=== PATIENT | male | born 1950 | race Caucasian/White ===

== ENCOUNTER 2022-08-23 10:18 | Inpatient (IN) | payer MEDICARE, MEDICAID, SELFPAY ==
[2022-08-23] VITALS (33 sets, daily range): BP systolic 106–148; BP diastolic 63–85; PULSE 54–84; RESP 9–26; TEMP 36.7–36.9; O2SAT 94–100
--- NOTE | 2022-08-23 10:29 | XACV_ITS ---
Exam Room: [facility] Ht: 175 cm Wt: 90 kg BSA: 2.11 m2 Gender: Male : 1950 Exam Priority: Routine Procedure(s): Procedure Description: Diagnostic procedure Procedure Description: PCI procedure Procedure Description: Drug Eluting Coronary Stent Procedure Description: PTCA Procedure Description: Miscellaneous Procedure Description: ACT Procedure Description: Coronary Angiography Diagnostic Cath Status: Emergency Diagnostic Findings * INDICATION: 72 year old male with past medical history of DVT is on Xarelto who has been transferred from [facility] in [place] for STEMI. According to patient he was having chest pain for the last 1 week. He was seen in the ER at outside hospital a week ago when he was treated for anxiety and was sent home. He says chest pain was on and off since then and today got worse. EKG performed at outside hospital showed normal sinus rhythm with ST elevations in inferior leads II, III and aVF with ST depressions in leads I, aVL and V1 and V2. Cardiology team at our hospital (Dr Castaneda) was contacted about an hour after initial EKG and they asked for emergent transfer of patient to our hospital for cardiac catheterization. STEMI alert was activated.Patient was directly taken to the Mannequin Molder on arrival to our hospital. . * Mid Left Anterior Descending: chronic total occlusion, LAWRENCE: 0 flow. Prior to occlusion, it gives off diagonal arteries. * Right Coronary Artery has is a small sized, non dominant vessel. no disease. * Left circumflex artery is a large sized vessel. It * has total thrombotic occlusion in mid segment. * M * id Circumflex: total occlusion, LAWRENCE: 0 flow. After flow was established with PCI, distal left circumflex artery was found to have another significant 70% stenosis. This artery continues and wraps around the apex and provides collaterals to LAD territory.. * Left Main has no disease. * Distal Circumflex: obstructive 70% stenosis, LAWRENCE: 3 flow. * Coronary angiography shows left dominance. PCI Status: Emergency PCI Indication: STEMI - Immediate PCI for STEMI Interventional Findings * PROCEDURE DETAIL: We engaged left main artery with XB 3.0 guide catheter. IV heparin was administered to maintain anticoagulation. 0.014 run-through guidewire was used to cross total thrombotic occlusion of mid left circumflex artery and was put in distal vessel. We predilated the stenosis with 2.5 x 12 mm semicompliant balloon. This established flow. We proceeded with placement of 4.0 x 18 mm resolute Genna drug-eluting stent. At this time we observed that this is a very large sized artery that is wrapping around the apex and providing collaterals to LAD. Distal left circumflex artery also had another 70% stenosis. We proceeded with PCI of this lesion as well. We have predilated with a 2.5 x 12 mm semicompliant balloon. This was followed by placement of 2.75 x 18 mm resolute Genna drug-eluting stent. At this time final angiogram was performed that showed excellent stent expansion, no residual stenosis and LAWRENCE-3 flow. Guidewire and guide catheter were removed. Patient left the Mannequin Molder in a stable condition.. * Mid Circumflex: 100% stenosis treated with a AB TREK 2.50X12 RX BALLOON, and MDT R GENNA 4.0X18 STEPHANIE. 0% residual stenosis, LAWRENCE: 3 flow. * Distal Circumflex: 70% stenosis treated with a AB TREK 2.50X12 RX BALLOON, and MDT R GENNA 2.75X18 STEPHANIE. 0% residual stenosis, LAWRENCE: 3 flow. Conclusions 1. Total thrombotic occlusion of mid left circumflex artery. Severe distal left circumflex artery stenosis 2. . 3. S/p successful revascularization with STEPHANIE x2.. 4. Mid Circumflex was treated with a Balloon, and Drug Eluting Stent. 5. Distal Circumflex was treated with a Balloon, and Drug Eluting Stent. Recommendations * Dual antiplatelet therapy with aspirin and Plavix . For 1 week we will keep on triple therapy with aspirin , plavix and Xarelto and then can continue on plavix and Xarelto. * High intensity statin therapy. * Outpatient cardiology follow up in 7-10 days. Interventional RX Recommendation: PCI w/o planned CABG Diagnostic RX Recommendation: PCI w/o planned CABG Anticoagulation: Heparin Pressures Phase:Rest AO : 90 / 57 ( 74 ) @ 11:44:00 AM 80 / 43 ( 58 ) @ 11:50:00 AM 79 / 42 ( 60 ) @ 11:55:00 AM Clinical Evaluation EBL: 5mL-10mL Procedural Details Admit Source: Emergency department. Pre-Procedure Time Out. Identified patient by full name and date of as verbalized by the patient/guarantor. Does the consent match the physician's order: N/A Emergent. Accurate & Complete Informed Consent: N/A Emergent. Inpatient/Outpatient History & Physical on Chart: N/A Emergent. If H&P is completed, is and addenduem needed: N/A Emergent; If yes, is the addendum complete: N/A Emergent. Visualize and Verify Site with Patient/Guarantor: N/A. Relevant Radiology Images available: N/A. Pre-op teaching completed and patient verbalized understanding. The risks, benefits, and alternatives of sedation and/or procedure were discussed by physician. The patient agrees to continue. Procedure started. [facility] Clinical Fraility Score: 3: Managing Well. Mannequin Molder Indications: ACS <= 24 hours. Chest Pain Symptom Assessment: Typical Angina Symptoms. Correct patient, site and procedure confirmed by cath team. Current diagnosis: STEMI. PERRLA. Strong, equal hand strike operations officer bilaterally. Lungs clear x 5 lobes. IV Site on Arrival: 20 gauge in the right anticubital. IV Fluids: 0.9% NaCl at KVO. 0 mL infused prior to dental laboratory technician apprentice. Pre Procedural Pulses: bilateral radial was 2+. Pre Procedural Pulses: bilateral dorsalis pedis was 2+. Oxygen started at 2liters/min via nasal canula. right groin was prepped with chloroprep then draped in the usual sterile fashion. right radial was prepped with chloroprep then draped in the usual sterile fashion. Baseline sample Acquired. HR: 69 BPM. Physician notified. Physician arrived. Physician scrubbed in. Immediate Pre-Procedure Time Out. Correct Patient: Yes; Correct Procedure: Yes; Correct Site: Yes; Correct Patient Position: Yes; Correct Supplies: Yes; Dried Flammable Prep: Yes; Blood Products Available: N/A;. Lidocaine 1% infiltrated to the right radial. Arterial access obtained. 6 ugandan JR 4 guide catheter was inserted over the wire. Multiple views taken of right coronary artery. Guide catheter out over exchange wire. 6 ugandan XB 3 guide catheter was inserted over the wire. Multiple views taken of left coronary artery. PCI Indication: STEMI. Runthrough guidewire was advanced through the guide catheter to lesion in the mid Circ. Balloon inserted to lesion in the mid Circ. Inflation number : 1 A AB TREK 2.50X12 RX BALLOON was prepped and advanced across the Mid CX , then inflated to 12 KENDALL for 0:14 seconds. Balloon out. Stent inserted to lesion in the mid Circ. Inflation Number : 2 A MDT R GENNA 4.0X18 STEPHANIE -Lot Number# [id number] Exp 08/13/23 was prepped and advanced across the Mid CX. The stent was deployed at 12 KENDALL for 0:22 seconds. Results checked. Stent balloon out over wire. Inflation number: 1 The AB TREK 2.50X12 RX BALLOON was reinflated across the Dist CX, to 12 KENDALL for 0:12 seconds. Balloon inserted to lesion in the distal Circ. Inflation number: 2 The AB TREK 2.50X12 RX BALLOON was reinflated across the Dist CX, to 12 KENDALL for 0:10 seconds. Results checked. Balloon out. Stent inserted to lesion in the distal Circ. Inflation Number : 3 A MDT R GENNA 2.75X18 STEPHANIE -Lot Number# [id number] Exp 01/27/2024 was prepped and advanced across the Dist CX. The stent was deployed at 12 KENDALL for 0:21 seconds. Results checked. Stent balloon out over wire. Wire out. Results checked. Guide catheter out. ACT drawn. Results out of range high, no heparin administered. A TR Band was successful obtaining hemostatsis at the Right Radial artery insertion site. Post Procedure: Pulses reassessed and unchanged. PERRLA. Strong, equal hand strike operations officer bilaterally. No VTE prophylaxis required. Medication's Wasted: Lidocaine 1% = 3 mL. Medication's Wasted: Nitro = 49.8 mg. Medication's Wasted: Other = Fentanyl 50 mcg. Medication's Wasted: Heparin = 4000 u. Total IV fluids: 250 mL. Post-op diagnosis: STEMI,Severe CAD mid and Distal Circumflex s/p successful stenting. Complications: none. Estimated blood loss: 5mL-10mL. Responsiveness - Normal response to verbal stimuli; alert and oriented, PERRLA. Airway - Unaffected, no intervention required; spontaneous ventilation. Circulation: W/N/L, pulses unchanged. Nausea/Vomiting: No. Procedure completed. Patient transferred by bed to 1st floor. Vital chart was stopped. Access Site Site: Right Radial artery Sheath Size: 6 Fr Hemostasis Method: TR Band Hemostasis Success: Successful Procedure Medications Start: 10:37 AM Stop: 10:37 AM Medication: Versed Amount: 1 mg Route: I.V. Start: 10:37 AM Stop: 10:37 AM Medication: Fentanyl Amount: 50 mcg Route: I.V. Start: 10:38 AM Stop: 10:38 AM Medication: Nitrogylcerin Amount: 200 mcg Route: I.A. Start: 10:40 AM Stop: 10:40 AM Medication: Heparin Amount: 5000 units Route: I.V. Start: 10:44 AM Stop: 10:44 AM Medication: Heparin Amount: 2000 units Route: I.V. Start: 10:54 AM Stop: 10:54 AM Medication: 0.9% Saline Amount: 250 ml Route: I.V. bolus Start: 10:47 AM Stop: 10:47 AM Medication: Versed Amount: 1 mg Route: I.V. Start: 11:05 AM Stop: 11:05 AM Medication: Plavix Amount: 600 mg Route: P.O. I, the attending physician, have reviewed and verified all procedure medications. Yes, all medications given per verbal order History/Risk Factors Hypertension: No Dyslipidemia: No Peripheral Arterial Disease (PAD): No Myocardial Infarction (GA): No Obesity: No Renal Disease: No Tobacco Use: Current/Recent(w/in 1 year) Prior Interventions PCI: No CABG: No Valve Surgery: No Report Signatures Finalized by Gurvinder Wick MD on 08/29/2022 02:05 PM
--- NOTE | 2022-08-23 11:36 | PC.NURSE ---
Patient back from environmental laboratory technician at 1120am with TR band with 14mL of air instilled. Patient doing well. Report taken from TATUM Church, Family at bedside with patient.
--- NOTE | 2022-08-23 12:16 | P.HP_ITS ---
Providers/Chief Complaint Admitting Physician: Gurvinder Wick MD Chief Complaint: STEMI History of Present Illness Lj Caban is a 72 year old male with past medical history of DVT is on Xarelto who has been transferred from [facility] in [place] for STEMI. According to patient he was having chest pain for the last 1 week. He was seen in the ER at outside hospital a week ago when he was treated for anxiety and was sent home. He says chest pain was on and off since then and today got worse. EKG performed at outside hospital showed normal sinus rhythm with ST elevations in inferior leads II, III and aVF with ST depressions in leads I, aVL and V1 and V2. Cardiology team at our hospital (Dr Castaneda) was contacted about an hour after initial EKG and they asked for emergent transfer of patient to our hospital for cardiac catheterization. STEMI alert was activated. Patient was directly taken to the Dog Daycare Provider on arrival to our hospital. Coronary angiogram showed totally occluded mid left circumflex artery. It was a dominant vessel. 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 Patient admitted successful revascularization of mid left circumflex artery with a 1 stent. It was noted in distal vessel there was another stenosis that was then supplying collaterals to LAD. Distal Left circumflex artery was stented with DESx 1. Review of Systems Narrative: CONSTITUTIONAL: No fever chills weight loss or gain or night sweats. [] HEENT: Normocephalic, atraumatic.[] RESPIRATORY: No cough, sputum, hemoptysis or wheezing.[] CARDIOVASCULAR: Chest pain GI: no nausea vomiting diarrhea. [] AUTOMOBILE TIRE BUILDER: No numbness, tingling, weakness or loss of function in any part of the body. [] MUSCULOSKELETAL: No knee or joint pain or rashes. [] Medications/Allergies Home Medications Medication Instructions Recorded Confirmed Last Taken Type escitalopram oxalate 10 mg tablet mg 08/23/22 08/22/22 History rivaroxaban 20 mg tablet (Xarelto) mg 08/23/22 08/22/22 History PFSH Acute PFSH: Medical History History of deep vein thrombosis Family History Other CAD (coronary artery disease) Vitals/I&O/Wt Last Vital Signs O2 Del Method Room Air 08/23/22 11:40 08/22/22 08/23/22 08/23/22 22:59 06:59 14:59 Output Total 430 / 430 Balance -430 / -430 Physical Exam Narrative: GENERAL: Patient is alert, awake and oriented x3. [] NECK: No jugular vein distension. [] HEENT: No cyanosis. No icterus. No pallor. [] HEART: Regular S1 and S2. No murmur, rub or gallop. [] LUNGS: Clear to auscultate bilaterally. [] CENTRAL NERVOUS SYSTEM: Grossly nonfocal. [] EXTREMITIES: Lower extremities with no edema Data 08/23/22 14:25 08/23/22 14:25 A&P Assessment and plan (1) STEMI (ST elevation myocardial infarction): (2) History of deep vein thrombosis: Plan Patient has presented to ST elevation [place] at outside hospital. There was delay in transfer however was directly taken to cardiac Dog Daycare Provider upon arrival to our hospital. He underwent successful revascularization of left circumflex artery with STEPHANIE times 2. We will continue aspirin and Plavix. Tomorrow we will resume Xarelto. Echocardiogram ordered Labs ordered. Attestations Medical Necessity Statement*: Care expected to cross 2 midnights. Patient has presented with STEMI and underwent successful revascularization with DESX2 Coding Level of Care Code Acute Code for [facility] Diagnoses STEMI (ST elevation myocardial infarction) I21.3 History of deep vein thrombosis Z86.718
[2022-08-23] MEDS: sodium chloride 0.9% 1,000 ML 100 ML IV (13:17)
[2022-08-23 14:39] LABS: Hematocrit 38.2 % (42.0-52.0); Hemoglobin 12.9 g/dL (11.7-16.6); Mean Corpuscular HGB Conc 33.8 g/dL (30.0-36.0); Mean Corpuscular Hemoglobin 30.1 pg (28.0-34.0); Mean Platelet Volume 9.2 fL (7.4-10.4); Platelet Count 183 10^3/cmm (130-400); Red Blood Count 4.29 10^6/uL (4.1-5.3); Red Cell Distribution Width 12.6 % (12.1-15.1); White Blood Count 7.1 10^3/uL (4.0-10.0)
[2022-08-23 14:55] LABS: Absolute Eosinophils 0.1 10^3/cmm (0.0-0.7); Absolute Segmented Neutrophil 4.3 10/cmm (1.6-7.1); Band Neutrophils Absolute 0.1 10^3/cmm (0.0-1.2); Eosinophils 2 %; Lymphocytes 30 %; Monocytes Absolute 0.4 10^3/cmm (0.1-0.6); Segmented Neutrophils 60 %; Total Cells Counted 100 (0-100)
[2022-08-23] MEDS: acetaminophen 325 mg Tablet 650 MG PO (14:55)
[2022-08-23 14:56] LABS: Absolute Neutrophil 4.4 10^3/cmm (1.4-6.5); Blood Urea Nitrogen 12 mg/dL (8-23); Calcium 8.7 mg/dL (8.5-10.5); Carbon Dioxide 27 mmol/L (22-29); Chloride 102 mmol/L (98-107); Chol HDL Ratio 3.16 mg/dL (1.0-5.00); Cholesterol 174 mg/dL (0-200); Glucose 137 mg/dL (65-115); HDL Cholesterol 55 mg/dL (60-100); LDL Cholesterol Calculated 105 mg/dL (50-129); LDL HDL Ratio 1.91 RATIO (0.00-3.22); Lymphocytes Absolute 2.1 10^3/cmm (1.2-3.4); Osmolality Calculated 286 mOsm/kg (285-295); Platelet Estimate Normal (Normal); Sodium 137 mmol/L (136-145); Triglycerides 68 mg/dL (0-150)
[2022-08-23 15:24] LABS: Estmated Average Glucose 128; Hemoglobin A1C 6.1 % (4.0-6.0)
--- NOTE | 2022-08-23 15:39 | PC.NURSE ---
TR band removed at 1520. No hematoma noted. No bleeding noted. 4x4 and tegaderm applied.
--- NOTE | 2022-08-23 18:19 | USCV_ITS ---
Lj Caban Age: 72 Gender: M : 1950 Exam Date: 08/23/2022 19:02 Ordering Phys: Gurvinder Wick M.D ([email or web address]) Technologist: CHRIS [place]am [place] [facility] [place] Indication: post STEMI, s/p cardiac cath with cardiac stents x 2. BP: 108 / 60 HR: 77 Rhythm: Sinus Technical Quality: Technically difficult study poor windows MEASUREMENTS (Male / Female) Normal Values 2D ECHO LV Diastolic Diameter PLAX 3.3 cm 4.2 - 5.9 / 3.9 - 5.3 cm LV Systolic Diameter PLAX 2.6 cm IVS Diastolic Thickness 1.6 cm 0.6 - 1.0 / 0.6 - 0.9 cm IVS Systolic Thickness 2.3 cm LVPW Diastolic Thickness 1.4 cm 0.6 - 1.0 / 0.6 - 0.9 cm LVPW Systolic Thickness 1.7 cm LVOT Diameter 2.2 cm LV Ejection Fraction 2D Teich 42.1 % LV Ejection Fraction MOD 2C 33.0 % LV Ejection Fraction 2C AL 32.7 % LA Diameter 3.9 cm LA Width 3.9 cm LA Height 5.3 cm RA Width 2.7 cm RA Height 4.3 cm Aorta at Sinotubular Diameter 3.4 cm IVC Diameter 2.2 cm M-MODE Aortic Annulus Diameter 3.7 cm LA Ao Ratio MM 1.0 MV E Point Septal Separation 0.8 cm DOPPLER AV Peak Velocity 90.0 cm/s LVOT Peak Velocity 88.0 cm/s AV Area Cont Eq vti 3.9 cm squared AV Area Cont Eq pk 3.6 cm squared MV Area PHT 4.0 cm squared Mitral E to A Ratio 1.3 MV E' Velocity 48.0 cm/s Mitral E to MV E' Ratio 19.4 Mitral E to LV E' Lateral Ratio 19.0 Mitral E to LV E' Septal Ratio 20.3 TR Peak Velocity 279.0 cm/s TR Peak Gradient 31.1 mmHg TV Peak E Velocity 44.0 cm/s Right Atrial Pressure 5.0 mmHg Pulmonary Artery Systolic Pressu 36.1 mmHg FINDINGS Left Ventricle Left ventricle is normal in size. LV systolic function is mildly reduced with EF of 45 to 50%. Moderate hypokinesis of inferior and inferolateral foster. Right Ventricle Normal in size and function Right Atrium Normal in size Left Atrium Normal in size Mitral Valve Moderate mitral annular calcification. Aortic Valve Aortic valve is thickened. No significant stenosis or regurgitation. Tricuspid Valve Mild tricuspid regurgitation. Insufficient TR jet to calculate RVSP. Pulmonic Valve Not wel visualized Pericardium Normal Aorta Normal in size IVC Grossly normal CONCLUSIONS LV systolic function is mildly reduced with EF of 45 to 50%. Moderate hypokinesis of the inferior and inferolateral wall. Mild tricupsid regurgitation. No comparison studies are available Gurvinder Wick MD (Electronically Signed) Final Date: 28 August 2022 14:05 S
[2022-08-23] MEDS: atorvastatin 40 mg Tablet PO (20:45)
[2022-08-23] MEDS: metoprolol tartrate 25 mg Tablet 12.5 MG PO (20:45)
[2022-08-24 03:53] VITALS: BP 112/62; PULSE 72; RESP 19; TEMP 36.6; O2SAT 96
[2022-08-24 04:32] VITALS: PULSE 58
[2022-08-24 06:02] LABS: Basophils # 0.1 10^3/uL (0.0-0.1); Basophils % 0.8 %; Eosinophils # 0.2 10^3/uL (0.0-0.8); Eosinophils % 2.5 %; Hematocrit 38.2 % (42.0-52.0); Hemoglobin 12.3 g/dL (11.7-16.6); Lymphocytes # 2.1 10^3/uL (0.8-4.8); Lymphocytes % 34.1 %; Mean Corpuscular HGB Conc 32.2 g/dL (30.0-36.0); Mean Corpuscular Hemoglobin 29.9 pg (28.0-34.0); Mean Corpuscular Volume 92.7 fl (80-94); Mean Platelet Volume 9.7 fL (7.4-10.4); Monocytes # 0.8 10^3/uL (0.2-0.9); Monocytes % 13.4 %; Neutrophils # 3.07 10^3/uL (1.8-7.7); Neutrophils % 48.9 %; Nucleated Red Blood Cells % 0 %; Platelet Count 185 10^3/cmm (130-400); Red Blood Count 4.12 10^6/uL (4.1-5.3); Red Cell Distribution Width 12.9 % (12.1-15.1); White Blood Count 6.3 10^3/uL (4.0-10.0)
[2022-08-24 06:27] LABS: Anion Gap 10.2 (5-19); Blood Urea Nitrogen 14 mg/dL (8-23); Calcium 8.5 mg/dL (8.5-10.5); Carbon Dioxide 27 mmol/L (22-29); Chloride 104 mmol/L (98-107); Glucose 118 mg/dL (65-115); Osmolality Calculated 286 mOsm/kg (285-295); Potassium 4.2 mmol/L (3.5-5.1); Sodium 137 mmol/L (136-145)
[2022-08-24] MEDS: aspirin 81 mg EC Tablet PO (08:45)
[2022-08-24] MEDS: clopidogrel 75 mg Tablet PO (08:46)
[2022-08-24] MEDS: rivaroxaban 10 mg Tablet 20 MG PO (08:46)
[2022-08-24] MEDS: metoprolol tartrate 25 mg Tablet 12.5 MG PO (08:54)
--- NOTE | 2022-08-24 08:55 | PM.DCS ---
Discharge Providers Date of Admission: 08/23/22 10:18 Date of Discharge: August 24, 2022 Attending Provider at Admission: Gurvinder Wick MD Attending Provider at Discharge: Gurvinder Wick M.D Primary Care Provider: Sukhjinder Hinojosa Diagnoses at Discharge Discharge Diagnosis (1) STEMI (ST elevation myocardial infarction): Status: Inactive (2) History of deep vein thrombosis: Status: Acute Reason for Visit Reason for Visit: STEMI Brief History: 72 year old male with past medical history of DVT is on Xarelto who has been transferred from [facility] in [place] for STEMI.? According to patient he was having chest pain for the last 1 week.? He was seen in the ER at outside hospital a week ago when he was treated for anxiety and was sent home.? He says chest pain was on and off since then and today got worse.? EKG performed at outside hospital showed normal sinus rhythm with ST elevations in inferior leads II, III and aVF with ST depressions in leads I, aVL and V1 and V2.? Cardiology team at our hospital (Dr Castaneda) was contacted about an hour after initial EKG and they asked for emergent transfer of patient to our hospital for cardiac catheterization.? STEMI alert was activated. Patient was directly taken to the Backpackers Manager on arrival to our hospital.? Hospital Course Hospital Course Coronary angiogram showed totally occluded mid left circumflex artery.? It was a dominant vessel.? 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 Patient admitted successful revascularization of mid left circumflex artery with a 1 stent.? It was noted in distal vessel there was another stenosis that was then supplying collaterals to LAD.? Distal Left circumflex artery was stented with DESx 1. Patient's echo showed mildly reduced LV systolic function with EF of 45 to 50%. He stayed overnight in the hospital and was stable. He was discharged home on aspirin, Plavix and Xarelto. Plan to stop aspirin in 1 week and continue on Xarelto and Plavix Physical Exam Narrative: GENERAL: Patient is alert, awake and oriented x3. [] NECK: No jugular vein distension. [] HEENT: No cyanosis. No icterus. No pallor. [] HEART: Regular S1 and S2. No murmur, rub or gallop. [] LUNGS: Clear to auscultate bilaterally. [] CENTRAL NERVOUS SYSTEM: Grossly nonfocal. [] EXTREMITIES: Lower extremities with no edema Discharge Data Studies Completed and Pending Pending at discharge Category Date Time Status SORTER OPERATOR request for service Stat Exams 08/23/22 10:29 Taken Basic Metabolic Panel AM LABS Lab 08/25/22 04:00 Ordered Complete Blood Count w/Auto AM LABS Lab 08/25/22 04:00 Ordered CV. echo complete* [id number] Routine Ultrasound 08/23/22 18:19 Taken Laboratory Results WBC 6.3 10^3/uL (4.0-10.0) 08/24/22 04:48 RBC 4.12 10^6/uL (4.1-5.3) 08/24/22 04:48 Hgb 12.3 g/dL (11.7-16.6) 08/24/22 04:48 Hct 38.2 % (42.0-52.0) L 08/24/22 04:48 MCV 92.7 fl (80-94) 08/24/22 04:48 MCH 29.9 pg (28.0-34.0) 08/24/22 04:48 MCHC 32.2 g/dL (30.0-36.0) 08/24/22 04:48 RDW 12.9 % (12.1-15.1) 08/24/22 04:48 Plt Count 185 10^3/cmm (130-400) 08/24/22 04:48 MPV 9.7 fL (7.4-10.4) 08/24/22 04:48 Neut % (Auto) 48.9 % 08/24/22 04:48 Lymph % (Auto) 34.1 % 08/24/22 04:48 Blanco % (Auto) 13.4 % 08/24/22 04:48 Eos % (Auto) 2.5 % 08/24/22 04:48 Baso % (Auto) 0.8 % 08/24/22 04:48 Neut # (Auto) 3.07 10^3/uL (1.8-7.7) 08/24/22 04:48 Lymph # (Auto) 2.1 10^3/uL (0.8-4.8) 08/24/22 04:48 Blanco # (Auto) 0.8 10^3/uL (0.2-0.9) 08/24/22 04:48 Eos # (Auto) 0.2 10^3/uL (0.0-0.8) 08/24/22 04:48 Baso # (Auto) 0.1 10^3/uL (0.0-0.1) 08/24/22 04:48 Nucleated RBC % (auto) 0 % 08/24/22 04:48 Total Counted 100 (0-100) 08/23/22 14:25 Atypical Lymphs % 0.0 % (0-5) 08/23/22 14:25 Absolute Neutrophils 4.4 10^3/cmm (1.4-6.5) 08/23/22 14:25 Segmented Neutrophils 60 % 08/23/22 14:25 Abs Segm Neuts (Man) 4.3 10/cmm (1.6-7.1) 08/23/22 14:25 Band Neutrophils 2.0 % 08/23/22 14:25 Abs Band Neuts (Man) 0.1 10^3/cmm (0.0-1.2) 08/23/22 14:25 Absolute Lymphocytes 2.1 10^3/cmm (1.2-3.4) 08/23/22 14:25 Lymphocytes (Manual) 30 % 08/23/22 14:25 Monocytes (Manual) 6.0 % 08/23/22 14:25 Absolute Monocytes 0.4 10^3/cmm (0.1-0.6) 08/23/22 14:25 Eosinophils (Manual) 2 % 08/23/22 14:25 Absolute Eosinophils 0.1 10^3/cmm (0.0-0.7) 08/23/22 14:25 Basophils (Manual) 0.0 % 08/23/22 14:25 Absolute Basophils 0.0 10^3/cmm (0.0-0.2) 08/23/22 14:25 Nucleated RBCs # 0.0 /100WBC 08/24/22 04:48 Platelet Estimate Normal (Normal) 08/23/22 14:25 Sodium 137 mmol/L (136-145) 08/24/22 04:48 Potassium 4.2 mmol/L (3.5-5.1) 08/24/22 04:48 Chloride 104 mmol/L (98-107) 08/24/22 04:48 Carbon Dioxide 27 mmol/L (22-29) 08/24/22 04:48 Anion Gap 10.2 (5-19) 08/24/22 04:48 BUN 14 mg/dL (8-23) 08/24/22 04:48 Creatinine 0.9 mg/dL (0.7-1.2) 08/24/22 04:48 GFR Calculation Not Reportable 08/24/22 04:48 Glucose 118 mg/dL (65-115) H 08/24/22 04:48 Estimat Average Glucose 128 08/23/22 14:25 Hemoglobin A1c 6.1 % (4.0-6.0) H 08/23/22 14:25 Calculated Osmolality 286 mOsm/kg (285-295) 08/24/22 04:48 Calcium 8.5 mg/dL (8.5-10.5) 08/24/22 04:48 Triglycerides 68 mg/dL (0-150) 08/23/22 14:25 Cholesterol 174 mg/dL (0-200) 08/23/22 14:25 LDL Cholesterol, Calc 105 mg/dL (50-129) 08/23/22 14:25 HDL Cholesterol 55 mg/dL (60-100) L 08/23/22 14:25 LDL/HDL Ratio 1.91 RATIO (0.00-3.22) 08/23/22 14:25 Cholesterol/HDL Ratio 3.16 mg/dL (1.0-5.00) 08/23/22 14:25 Vitals Last Vital Signs Temp 98 F 08/24/22 03:53 Pulse 58 L 08/24/22 04:32 Resp 19 H 08/24/22 03:53 BP 112/62 08/24/22 03:53 Pulse Ox 96 08/24/22 03:53 O2 Del Method Room Air 08/23/22 15:40 Discharge Plan Discharge Patient Disposition: Home Condition: Stable Prescriptions: New atorvastatin 40 mg Tablet 40 mg PO BEDTIME Qty: 90 3RF clopidogrel 75 mg Tablet 75 mg PO DAILY Qty: 90 3RF aspirin 81 mg Tablet,Delayed Release (Dr/Ec) 81 mg PO DAILY Qty: 90 3RF metoprolol tartrate 25 mg Tablet 12.5 mg PO BID@0900,2100 Qty: 120 2RF lisinopril 2.5 mg tablet 2.5 mg PO DAILY Qty: 90 3RF Continued Xarelto 20 mg tablet 20 mg PO QAM escitalopram oxalate 10 mg tablet 10 mg PO QAM Discharge Orders: Discharge Order (Routine); Ordered 08/24/22 Ordered By: Gurvinder Wick Referrals: Gurvinder Wick M.D [Physician] - 2 months (During your appointment with Beti Guzman, you will be schduled for an follow-up with Dr. Wick. If ypu have any questions or need to reschedule. Please call ) Beti Guzman, RAMBO [Nurse Practitioner] - 7-10 days (Please follow-up with Beti Guzman on August 31 at 2:15P.M. If you have any questions or need rechedule. Please call ) Discharge Diet: Cardiac Discharge Activity: Increase activity as tolerated Patient Instructions: Metoprolol (By mouth) (Lopressor, Toprol XL), Lisinopril (By mouth), Aspirin (By mouth), Atorvastatin (By mouth) (Lipitor), Clopidogrel (By mouth) (Plavix), Coronary Angioplasty (DC), DASH Eating Plan (DC), Opioid Safety, Post Angiogram Home Care Instructions Discharge Attestations Time Spent in Discharge Care*: greater than 30 min Quality Metrics Clinical Quality Measures [ Acute Myocardial Infaction { Clinical Trial Participant: No; Contraindication to aspirin: None; Aspirin prescribed; Contraindication to statin: None; Statin prescribed; Contraindication to PCI: None; PCI performed;}] Coding Level of Care Code Acute Code for [facility] Diagnoses STEMI (ST elevation myocardial infarction) I21.3 History of deep vein thrombosis Z86.718
--- NOTE | 2022-08-24 09:24 | PC.CHAP ---
Pastoral Care Encounter/Spiritual Assessment Type of Contact [] Declined cupola melter visit [] Patient/Family/Request visit [] Outpatient visit [] Follow-up visit [] Physician referral [] Code/Alert [x] Routine visit [] Staff referral [] Actively dying [] Patient sleeping [] Family support [] [] Out of room [] Palliative care [] [] Receiving care in room [] Pre-surgical visit [] Trauma [] Long length of stay [] ICU visit [] Other: Relational/Emotional Strength [x] Patient feels connected with others/family/visitors/staff [] Distress [] Loneliness/isolation [] Abandonment Spirituality of Patient [x] Person of Rola [x] Attends Restoration of their Rola [x] Believes in Prayer [x] Reads Bible or Yazidism materials [] There are Spiritual issues to be addressed Correctional Officer Lieutenant Interventions [x] Prayer [] Active listening [] Non-anxious presence [] Spiritual/emotional support [] Crisis/trauma care [] Spiritual counseling [] Bereavement support [] Provided bereavement packet [] Provided Bible/devotional materials [] Provided toy/stuffed animal, coloring book to patient or family member [] Provided Communion [] Anointing/[place] [] Salvation [x] Completed spiritual assessment [] Other: Impact on Illness or Injury [] Angry [] Fearful [] Anxious [] Often cries [] Exhaustion [] Unable to work [] Unable to attend yazidi [] Unable to walk/stand [] Unable to read [] Unable to drive [] Unable to eat/drink [] Unable to sleep [] Unable to be with family [] Patient intubated [] Other: Summary Time spent with patient 5 min
[2022-08-24 10:23] VITALS: BP 119/62; PULSE 58; RESP 15; TEMP 36.8; O2SAT 98
[2022-08-24 11:30] VITALS: BP 120/70; PULSE 100; RESP 18; O2SAT 97
--- NOTE | 2022-08-24 12:36 | PC.NURSE ---
Patient discharged at 1220 PM with daughter and son in law. IV removed and intact. Patient ambulated with nurse and family to surgical services entrance.
== END 2022-08-24 12:35 | disposition home or self-care (01) | DRG 247 ==
PROVIDERS: Admitting Provider Internal Medicine Cardiovascular Disease; PCP Family Medicine; Visit Provider Internal Medicine
PROC: 027035Z Dilation of Coronary Artery, One Artery with Two Drug-eluting Intraluminal Devices, Percutaneous Approach (ICD-10-PCS; principal; 2022-08-23 10:00)
PROC: 027035Z Dilation of Coronary Artery, One Artery with Two Drug-eluting Intraluminal Devices, Percutaneous Approach (ICD-10-PCS; 2022-08-23 10:00)
DX: I21.21 ST elevation (STEMI) myocardial infarction involving left circumflex coronary artery (principal); I25.82 Chronic total occlusion of coronary artery; Z86.718 Personal history of other venous thrombosis and embolism; Z79.01 Long term (current) use of anticoagulants; Z82.49 Family history of ischemic heart disease and other diseases of the circulatory system; I25.10 Atherosclerotic heart disease of native coronary artery without angina pectoris
CPT/HCPCS: 36415; 80048; 80061; 83036; 85007; 85025; 85027; 85347; 93306; 93454; 96365; 96367; 96376; 99152; 99153; C1725; C1769; C1874; C1887; C1894; C9600; J0461; J1644; J2250; J3010; J3490; J7030; Q9967

== ENCOUNTER → 2022-08-31 13:08 | Outpatient (BNVA) | payer MEDICARE, MEDICAID, SELFPAY | PROVIDERS: PCP Family Medicine; Visit Provider Nurse Practitioner Family | DX: I25.10 Atherosclerotic heart disease of native coronary artery without angina pectoris (principal) | CPT/HCPCS: 36415; 80048; 99214 ==

== ENCOUNTER → 2022-09-06 10:24 | Outpatient (BNVA) | payer MEDICARE, MEDICAID, SELFPAY | PROVIDERS: PCP Family Medicine; Visit Provider Specialist | DX: M16.11 Unilateral primary osteoarthritis, right hip (principal); M25.551 Pain in right hip; Z87.81 Personal history of (healed) traumatic fracture | CPT/HCPCS: 73502; 73552; 99204 ==

== ENCOUNTER → 2022-09-06 10:34 | Outpatient (BNVA) | payer MEDICARE, MEDICAID, SELFPAY | PROVIDERS: PCP Family Medicine; Visit Provider Specialist | DX: M16.11 Unilateral primary osteoarthritis, right hip (principal) | CPT/HCPCS: 73502; 73552 ==

== ENCOUNTER 2022-10-04 10:37 | Outpatient (CLI) | payer MEDICARE, MEDICAID, SELFPAY ==
--- NOTE | 2022-10-04 11:45 | MR_ITS ---
WS: [id number] EXAMINATION: MR hip RT wo con* [id number] ORDER DATE: 10/04/2022 11:17 AM COMPARISON: None. HISTORY: hip pain CONTRAST: Radiograph September 06, 2022 TECHNIQUE: Coronal STIR of the Pelvis. Coronal proton density, coronal T1, axial T2 fat sat, axial T1 , sagittal T2 fat sat, and sagittal T1 performed of the hip. FINDINGS: Advanced osteoarthritis RIGHT hip with rvsg-oz-epma articulation. Associated subchondral cystic rubio e and sclerosis. Evidence of avascular necrosis involving the superior lateral humeral head. No signi ficant subchondral collapse. Extensive subchondral cystic change with edema. Associated subchondral c ystic changes involving the adjacent acetabulum. Hypertrophic spurring along the femoral head. Small RIGHT labral cyst measuring 10 mm. Moderate to advanced degenerative arthritis LEFT hip with a similar appearance. Subchondral cystic change with lirt-zq-xitm articulation. Edema in the LEFT aceta bulum and femoral head. MR/MR hip RT wo con* [id number] IMPRESSION: 1. Advanced osteoarthritis RIGHT hip with peii-iu-iijm articulation. Extensive subchondral cystic change with edema in the RIGHT femoral head and acetabulum. 2. Small amount of avascular necrosis involving the superolateral femoral head . No significant subchondral collapse. 3. Similar-appearing advanced osteoarthritis LEFT hip with subchondral cystic change and edema in the femoral head and acetabulum. 4. Small RIGHT paralabral labral cyst measuring 10 mm.
== END 2022-10-04 10:38 | disposition home or self-care (01) ==
LOC: RAD 10:42
PROVIDERS: PCP Family Medicine; Visit Provider Specialist
DX: M16.0 Bilateral primary osteoarthritis of hip (principal); M87.9 Osteonecrosis, unspecified; M71.351 Other bursal cyst, right hip
CPT/HCPCS: 73721; 99204

== ENCOUNTER → 2022-10-25 15:00 | Outpatient (BNVA) | payer MEDICARE, MEDICAID, SELFPAY | PROVIDERS: PCP Family Medicine; Visit Provider Specialist | DX: M16.11 Unilateral primary osteoarthritis, right hip (principal); M87.051 Idiopathic aseptic necrosis of right femur | CPT/HCPCS: 99214 ==

== ENCOUNTER → 2022-12-06 13:39 | Outpatient (BNVA) | payer MEDICARE, MEDICAID, SELFPAY | PROVIDERS: PCP Family Medicine; Visit Provider Internal Medicine | DX: I25.10 Atherosclerotic heart disease of native coronary artery without angina pectoris (principal); Z86.718 Personal history of other venous thrombosis and embolism; Z79.01 Long term (current) use of anticoagulants; Z79.82 Long term (current) use of aspirin | CPT/HCPCS: 99214 ==

== ENCOUNTER → 2022-12-13 14:15 | Outpatient (BNVA) | payer MEDICARE, MEDICAID, SELFPAY | PROVIDERS: PCP Family Medicine; Visit Provider Specialist | DX: M87.051 Idiopathic aseptic necrosis of right femur (principal); M16.11 Unilateral primary osteoarthritis, right hip; I25.10 Atherosclerotic heart disease of native coronary artery without angina pectoris | CPT/HCPCS: 99213 ==

== ENCOUNTER → 2023-02-14 10:37 | Outpatient (BNVA) | payer MEDICARE, MEDICAID, SELFPAY | PROVIDERS: PCP Family Medicine; Visit Provider Specialist | DX: M87.051 Idiopathic aseptic necrosis of right femur (principal); M16.11 Unilateral primary osteoarthritis, right hip; Z01.818 Encounter for other preprocedural examination | CPT/HCPCS: 36415; 73502; 80053; 81001; 85025; 99215 ==

== ENCOUNTER 2023-03-01 15:47 | Observation (INO) | payer MEDICARE, MEDICAID, SELFPAY ==
[2023-03-01] VITALS (14 sets, daily range): BP systolic 106–137; BP diastolic 56–83; PULSE 57–70; RESP 12–18; TEMP 36.1–36.4; O2SAT 90–100; BMI 29.5
[2023-03-01] MEDS: gabapentin 300 mg Capsule PO (10:57)
[2023-03-01] MEDS: CELEcoxib 200 mg Capsule 400 MG PO (10:57)
[2023-03-01] MEDS: sodium chloride 0.9% 1,000 ML 30 ML IV (10:58)
[2023-03-01] MEDS: acetaminophen 1,000 MG/100 ML PIGGYBACK 400 MG IV ×2 (10:58→19:12)
--- NOTE | 2023-03-01 12:41 | W.PM.OPSUD ---
Surgery/Procedure H&P Update DATE OF PROCEDURE: March 01, 2023 DATE H&P PERFORMED: 02/21/23 H&P UPDATE INFORMATION: I have reviewed H&P completed within last 30 days, I have examined patient prior to procedure, No changes to prior documentation and H&P is in [facility] EMR on date indicated PLANNED PROCEDURE: Operation Date: 03/01/23 12:15 Proposed Procedures p RIGHT TOTAL HIP ARTHROPLASTY 88462,M16.9(Right) - Kimberli Bishop MD Related Problem List Diagnoses (1) Avascular necrosis of bone of right hip: (2) Primary osteoarthritis of right hip:
--- NOTE | 2023-03-01 12:55 | ANES.PREANE2 ---
Pre-Anesthetic Assessment Height/Weight: Height 1.75 m Weight 90.718 kg Temp Pulse Resp BP Pulse Ox O2 Del Method 97 F L 67 16 137/83 97 Room Air 03/01/23 11:06 03/01/23 11:06 03/01/23 11:06 03/01/23 11:06 03/01/23 11:06 03/01/23 11:06 Operation Date: 03/01/23 12:15 Proposed Procedures p RIGHT TOTAL HIP ARTHROPLASTY 34342,M16.9(Right) - Kimberli Bishop MD Familial anesthetic complications: none Was Beta Ash taken within 24 hours: N/A Was Clonidine taken within 24 hours: N/A Last intake: Intake Last Liquid Date 02/28/23 Last Liquid Time 16:00 Last Solid Date 02/28/23 Last Solid Time 16:00 Social Tobacco and No alcohol Exam alert, oriented x 3, clear to auscultation bilaterally and regular rate & rhythm Airway Mallampati: Class II Dentition: other (poor dentition) CV/HEM Coronary Artery Disease (stent on anticoagulation - holding plavix only since 02/26 per chart, patient not good historian with regard to this last dose), Deep Vein Thrombosis, Hypertension and Myocardial Infarction (6 months ago) Musc/skel avascular necrosis of hip Anesthetic Plan ASA status: 4 Anesthesia: General (d/t anticoagulation status) Risk of > 500 ml blood loss (7ml/kg in children): No Medications/Allergies Home Medications Medication Instructions Recorded Confirmed Last Taken Type escitalopram oxalate 10 mg tablet 10 mg PO QAM 08/23/22 02/28/23 02/28/23 History lisinopril 2.5 mg tablet 2.5 mg PO DAILY #90 tabs 08/24/22 02/28/23 02/28/23 Rx clopidogrel 75 mg tablet 75 mg PO DAILY #90 tabs 02/14/23 02/28/23 02/26/23 Rx rivaroxaban 20 mg tablet (Xarelto) 20 mg PO QAM #90 tabs 02/14/23 02/28/23 02/26/23 Rx multivitamin 1 tab PO DAILY 02/21/23 02/28/23 Unknown History enoxaparin 100 mg/mL subcutaneous 90 mg (0.9 mL) SUBCUT Q12H #3.6 mL 02/25/23 02/28/23 02/28/23 Rx syringe (Lovenox) sulfamethoxazole 800 1 tab PO BID 5 days #10 tabs 02/25/23 02/28/23 02/28/23 Rx mg-trimethoprim 160 mg tablet (Bactrim DS) Allergies Allergy/AdvReac Type Severity Reaction Status Date / Time Penicillins Allergy ALGY-Anaphy Verified 02/28/23 12:33 laxis atorvastatin AdvReac Mild nausea Uncoded 02/21/23 10:38 Current Medications Generic Name Dose Route Start Last Admin Trade Name Freq PRN Reason Stop Dose Admin Sodium Chloride 1,000 mls @ 30 mls/hr 03/01/23 10:15 03/01/23 10:58 Sodium Chloride 0.9% IV 03/02/23 10:14 30 mls/hr .Q24H MAYA Administration PFSH Anesthesia Medical History Coronary artery disease 08/23/2022: STEPHANIE x1 to mid circumflex, STEPHANIE x1 to distal circumflex. History of deep vein thrombosis STEMI (ST elevation myocardial infarction) Family History Other CAD (coronary artery disease) Data Anesthesia Cardiac Studies: Echocardiogram 08/23/22
[2023-03-01] MEDS: clindamycin 900 MG/50 ML PREMIX 100 MG IV ×2 (13:09→21:11)
[2023-03-01] MEDS: tranexamic acid 1,000 MG/100 ML PREMIX 600 MG IV ×2 (13:46→18:54)
--- NOTE | 2023-03-01 15:58 | P.OP_ITS ---
Operative Report Date of procedure: March 01, 2023 Pre-op diagnosis: Severe degenerative osteoarthritis of the right hip secondary to avascular necrosis Post-op diagnosis: Severe degenerative osteoarthritis of the right hip secondary to avascular necrosis Post-op findings: Severe avascular necrosis with femoral head collapse and large osteophytes Procedure done: Right total hip arthroplasty Implants: The Benavides total hip system with a size 56 mm by F alpha code Trident II Trit anium acetabular shell with an MDM liner size 46 mm inner diameter by F alpha code.? A size 11 Accolade II 127? neck angle hip stem with a size 28 mm x +4 mm femoral head and a restorationist MDM X3 insert size 28 mm x 46F Specimens removed/disposition: Bone, disposed of Pathology: None sent Surgeon: Kimberli Bishop MD Mail Superintendent: Candis Guevara NP, who was necessary for positioning, retraction, and manip ulation of the leg. Anesthesia: General (Intubated, ASA 4) Estimated blood loss (mL): 250 IV fluids (mL): 1,550 IV fluids: 1300 mL of crystalloid and 250 mL of albumin Urine output (mL): 300 Complications: None Findings: Severe avascular necrosis with femoral head collapse and significant shortening. Large osteophytes. Following the surgical procedure, the hip was stable at 90 degrees of flexion with 80 degrees of internal rotation and 20 degrees of adduction. Condition: stable Disposition: PACU (Then admit to floor under observation status for postoperative rehabilitation and pain management) Brief History: This 72-year-old gentleman presented to the office with complaints of severe bilateral hip pain. He had to utilize 2 canes to ambulate, and even this was very difficult for him. He had significant impairment in his activities of daily living. After discussion, the patient wished to proceed with total hip arthroplasty. Risks and complications were discussed with him, and consents were signed. The patient agreed with the surgical plan. Procedure: Patient was brought to the operating theater.? He was transferred to the operating room table and subsequently administered a general anesthesia, intubated, ASA 4.? Following administration of adequate anesthesia, the patient was placed in full lateral position and held in position with a pegboard.? The patient's right lower extremity was then prepped and draped in usual fashion utilizing DuraPrep.? It was draped free.? Following prepping and draping, a surgical pause was performed.? At the time of surgical pause, we identified the site and side of surgery.? We also identified the patient and preoperative surgical markings.?The patient's operative leg was compared to the opposite leg.? Confirmation was made of equipment availability.? Additionally, the patient's preoperative IV antibiotic, clindamycin 900 mg, and TXA administration was confirmed as well.? X-rays were also reviewed. Following the surgical pause, an incision was made centering over the patient's greater trochanter continuing proximally and distally as necessary to allow access to the hip joint.? Dissection continued through skin and soft tissues usi ng a scalpel, and hemostasis was obtained using electrocautery. The tensor fascia rikki was identified and incised longitudinally.? Sciatic nerve was identified and protected throughout the surgical procedure.? A Charnley U retractor was placed after the tensor fascia rikki had been incised longitudinally, and the sciatic nerve had been identified.? The hip was internally rotated, and the piriformis muscle was identified and tagged. Piriformis muscle along with the remaining short external rotators were then incised from the posterior aspect of the hip joint.? These were retracted posteriorly.? The capsule was entered in a T-type fashion with the edges being tagged, and subsequently the hip was dislocated.? The labrum was excised with further excision accomplished once the femoral head was removed.? Following hip dislocation, a femoral neck osteotomy was accomplished in the appropriate position.? The head was measured, but it was quite deformed.? We then evaluated the acetabulum. The femur was retracted anteriorly.? Soft tissues were retracted, and the labrum was removed.? Labrum was noted to be quite large and deformed. We then began reaming.? Once the femoral head was removed, there was noted to be significant loss of cartilage over the head with the previously noted deformity and cartilage loss within the acetabulum.? We reamed to a size 55 to allow for a size 56 acetabular shell.? The acetabulum was impacted into position.? The MDM liner was then impacted into position with care being taken to assure it seated appropriately.? It was noted that the acetabulum matched the bony anatomy.? The cup was noted to seat nicely and had good fixation upon impact. Large osteophytes were removed from the anterior aspect of the acetabulum following cup insertion. Attention was directed to the proximal femur.? The proximal femur was lifted out of the wound.? A canal finder was passed after the box chisel.? The reamer was used to lateralize.? We then began broaching. We broached sequentially and had excellent fit and fill with the size 11 broach. ? A trial reduction was attempted with a +0 mm femoral head initially, but it was felt that over time, the soft tissues would stretch out, and this would become less stable. Because of this, we then placed a +4 mm femoral head which initially was difficult to reduce, but following movement of the hip, it was noted to loosen up slightly. Therefore, we elected to again perform trial reduction after the femoral component was placed.? With this construct, with the final trial, the hip was noted to be stable, and leg length was felt to be equal.? The final construct included a +4 mm femoral head with the above-noted stem and acetabulum. With this in place, we had the above stabilities.? This was felt to be excellent stab ility. Therefore, trial components were removed after the hip was dislocated.? The size 7 Accolade II 127? neck angle stem was impacted into position without difficulty and onto this was placed a +4 mm x 28 mm femoral head which had been assembled into the MDM insert size 46F.? With a +4 mm femoral head, we had the above-noted stability.? The stem was noted to seat nicely prior to placement of the femoral head.? The wound was copiously irrigated with 20 mL of Betadine and 500 mL of normal saline mixed together.? Subsequently, we suctioned this out and irrigated the wound copiously with lactated Ringer's.? At this time, with all components in appropriate position, the hip was reduced.? Following reduction of the prosthesis once again, we confirmed the stability of the hip.? Leg lengths were also felt to be satisfactory. Being satisfied with the prosthesis, attention was directed to closure.? Closure was accomplished with 0 Vicryl in the capsular tissues.? Piriformis was reattached with 0 Vicryl as well.? Tensor fascia rikki was closed with 0 Vicryl in an interrupted fashion.? The subcutaneous tissues were closed with combination of 0 Vicryl and 2-0 Monocryl.? Vancomycin powder and a Gelfoam thrombin mixture was placed into the wound as well.? The skin was closed with a running 3-0 Monocryl followed by Dermabond Prineo followed by OpSite.? The patient was placed in an abduction pillow.? He was returned the Recovery Room in a satisfactory condition and will be discharged to the floor for postoperative rehabilitation and pain management.? There were no complications or specimens. Related Problem List Diagnoses (1) Avascular necrosis of bone of right hip: (2) Primary osteoarthritis of right hip: (3) History of deep vein thrombosis:
--- NOTE | 2023-03-01 16:15 | XRR_ITS ---
PROCEDURE INFORMATION: Exam: XR Pelvis Exam date and time: 03/01/2023 5:22 PM Age: 72 years old Clinical indication: Device placement; Prior surgery; Surgery date: Post-operative (0-2 days); Surgery type: Post op RT hip; Additional info: Post right total hip arthroplasty ap low pelvis, images in pacu. TECHNIQUE: Imaging protocol: Radiologic exam of the pelvis. Views: 1 or 2 view. COMPARISON: CR XR hip RT 2-3V wo/w pel* [id number] 02/14/2023 10:46 AM FINDINGS: Bones/joints: Total right hip arthroplasty in good alignment. Soft tissues: Postoperative changes. XR/XR pelvis 1-2V* [id number] IMPRESSION: No unexpected postoperative findings.
[2023-03-01] MEDS: mupirocin oint 22 gm 1 APPLIC NASAL (17:23)
[2023-03-01] MEDS: iron polysaccharide complex 150 mg Capsule PO (17:23)
[2023-03-01] MEDS: calcium carbonate 500 mg Chew Tablet 1000 MG PO (17:23)
[2023-03-01] MEDS: sennosides-docusate Tablet 2 TAB PO (17:23)
[2023-03-01] MEDS: gabapentin 300 mg Capsule 600 MG PO (17:24)
[2023-03-01] MEDS: chlorhexidine gluconate 0.12% Btl 473 mL 30 ML MUCOUS MEM ×2 (17:24→21:11)
[2023-03-01] MEDS: oxyCODONE 5 mg IR Tab/Cap PO (17:26)
[2023-03-01] MEDS: CELEcoxib 200 mg Capsule PO (21:11)
[2023-03-02] VITALS: BP 113/70; PULSE 71; RESP 17; TEMP 36.9; O2SAT 99
[2023-03-02] MEDS: acetaminophen 1,000 MG/100 ML PIGGYBACK 400 MG IV ×2 (02:56→10:31)
[2023-03-02 04:00] VITALS: BP 90/54; PULSE 83; RESP 17; TEMP 36.6; O2SAT 90
[2023-03-02 04:41] LABS: Basophils % 0.4 %; Eosinophils % 0.3 %; Hematocrit 32.8 % (37-53); Lymphocytes # 0.8 10^3/uL (0.8-4.8); Lymphocytes % 10.1 %; Mean Corpuscular HGB Conc 32.3 g/dL (30-55); Mean Corpuscular Hemoglobin 30.1 pg (27-33); Mean Corpuscular Volume 93.2 fl (82-101); Mean Platelet Volume 9.6 fL (7.4-10.4); Monocytes # 0.7 10^3/uL (0.2-0.9); Monocytes % 9.2 %; Neutrophils # 6.16 10^3/uL (1.8-7.7); Neutrophils % 79.6 %; Nucleated Red Blood Cells % 0 %; Platelet Count 162 10^3/cmm (157-399); Red Blood Count 3.52 10^6/uL (3.85-5.65); Red Cell Distribution Width 13.2 % (12.1-15.1); White Blood Count 7.73 10^3/uL (3.29-11.43)
[2023-03-02] MEDS: clindamycin 900 MG/50 ML PREMIX 100 MG IV ×2 (04:59→13:02)
[2023-03-02] MEDS: escitalopram 10 mg Tablet PO (04:59)
[2023-03-02] MEDS: rivaroxaban 10 mg Tablet 20 MG PO (04:59)
[2023-03-02 05:08] LABS: Anion Gap 13.5 (5-19); Blood Urea Nitrogen 15 mg/dL (8-23); Calcium 8.5 mg/dL (8.5-10.5); Carbon Dioxide 24 mmol/L (22-29); Chloride 103 mmol/L (98-107); Glucose 185 mg/dL (65-115); Osmolality Calculated 288 mOsm/kg (285-295); Potassium 4.5 mmol/L (3.5-5.1); Sodium 136 mmol/L (136-145)
[2023-03-02 06:00] VITALS: BMI 32.3
[2023-03-02 07:16] VITALS: BP 101/61; PULSE 77; RESP 17; TEMP 36.6; O2SAT 94
[2023-03-02] MEDS: aspirin 325 mg EC Tablet PO (08:12)
[2023-03-02] MEDS: cholecalciferol (vitamin D3) 1,000 unit Tablet 1000 UNIT PO (08:12)
[2023-03-02] MEDS: sennosides-docusate Tablet 2 TAB PO (08:12)
[2023-03-02] MEDS: calcium carbonate 500 mg Chew Tablet 1000 MG PO (08:12)
[2023-03-02] MEDS: iron polysaccharide complex 150 mg Capsule PO (08:12)
[2023-03-02] MEDS: clopidogrel 75 mg Tablet PO (08:12)
[2023-03-02] MEDS: multivitamin therapeutic Tablet 1 TAB PO (08:12)
[2023-03-02] MEDS: mupirocin oint 22 gm 1 APPLIC NASAL (08:13)
[2023-03-02] MEDS: chlorhexidine gluconate 0.12% Btl 473 mL 30 ML MUCOUS MEM ×2 (08:13→13:02)
[2023-03-02 09:43] VITALS: RESP 18
[2023-03-02] MEDS: oxyCODONE 5 mg IR Tab/Cap PO (09:43)
[2023-03-02] MEDS: CELEcoxib 200 mg Capsule PO (09:44)
--- NOTE | 2023-03-02 10:09 | PC.CHAP ---
Pastoral Care Encounter/Spiritual Assessment Type of Contact [] Declined piece dyeing machine tender visit [] Patient/Family/Request visit [] Outpatient visit [] Follow-up visit [] Physician referral [] Code/Alert [x] Routine visit [] Staff referral [] Actively dying [] Patient sleeping [] Family support [] [] Out of room [] Palliative care [] [] Receiving care in room [] Pre-surgical visit [] Trauma [] Long length of stay [] ICU visit [] Other: Relational/Emotional Strength [x] Patient feels connected with others/family/visitors/staff [] Distress [] Loneliness/isolation [] Abandonment Spirituality of Patient [x] Person of Rola [x] Attends Judaism of their Rola [x] Believes in Prayer [x] Reads Bible or Protestant materials [] There are Spiritual issues to be addressed Senior Mechanical Designer Interventions [x] Prayer [x] Active listening [] Non-anxious presence [x] Spiritual/emotional support [] Crisis/trauma care [] Spiritual counseling [] Bereavement support [] Provided bereavement packet [] Provided Bible/devotional materials [] Provided toy/stuffed animal, coloring book to patient or family member [] Provided Communion [] Anointing/[place] [] Salvation [] Completed spiritual assessment [] Other: Impact on Illness or Injury [] Angry [] Fearful [] Anxious [] Often cries [] Exhaustion [] Unable to work [] Unable to attend roman catholic [] Unable to walk/stand [] Unable to read [] Unable to drive [] Unable to eat/drink [] Unable to sleep [] Unable to be with family [] Patient intubated [] Other: Summary Praise the Lord, what a blessing Lj and His brother Marbin Knows the Lord, believer in [place]. Shared his testimony Time spent with patient 20 min
[2023-03-02 11:42] VITALS: BP 103/62; PULSE 71; RESP 18; TEMP 37; O2SAT 92
--- NOTE | 2023-03-02 13:10 | P.DS_ITS ---
Discharge Providers Date of Admission: 03/01/23 15:47 Date of Discharge: March 02, 2023 Attending Provider at Admission: Kimberli Bishop MD Attending Provider at Discharge: Kimberli Bishop MD Primary Care Provider: Sukhjinder Hinojosa Diagnoses at Discharge Discharge Diagnosis (1) S/P total right hip arthroplasty: Status: Acute Permanent problem details: Date of procedure: March 01, 2023 Diagnosis: Severe degenerative osteoarthritis of the right hip secondary to avascular necrosis Procedure done: Right total hip arthroplasty Implants: The [employer] total hip system with a size 56 mm by F alpha code Trident II Tritanium acetabular shell with an MDM liner size 46 mm inner diameter by F alpha code. A size 11 Accolade II 127? neck angle hip stem with a size 28 mm x +4 mm femoral head and a holiness MDM X3 insert size 28 mm x 46F (2) Avascular necrosis of bone of right hip: Status: Acute (3) Primary osteoarthritis of right hip: Status: Acute (4) History of deep vein thrombosis: Status: Acute Reason for Visit Reason for Visit: 20388 M16.9 Brief History: This 72-year-old gentleman presented to the office with complaints of severe bilateral hip pain. He had to utilize 2 canes to ambulate, and even this was very difficult for him. He had significant impairment in his activities of daily living. After discussion, the patient wished to proceed with total hip arthroplasty. Risks and complications were discussed with him, and consents were signed. The patient agreed with the surgical plan. Hospital Course Hospital Course This 72-year-old gentleman was admitted under observation status following right total hip arthroplasty. Surgical procedure was difficult secondary to the patient's severe deformity. On the first postoperative day, the patient was doing well. He was felt safe for discharge to home. He understood posterior hip precautions. There is no evidence of DVT. Dressing was dry and intact, and the patient was discharged to home with home health to follow-up with me in the office as scheduled. Physical Exam Const: COMMON NORMALS: no acute distress, average body habitus, patient oriented x3, no limitations, healthy appearing, alert and well nourished GENERAL APPEARANCE: cooperative; not anxious and not combative ORIENTATION/CONSCIOUSNESS: Yes awake, Yes oriented to person, Yes oriented to place and Yes oriented to time HENMT: COMMON NORMALS: normocephalic and atraumatic HEAD & SCALP: normocephalic and atraumatic Eye: GENERAL EYE: appearance normal, both eyes and all related structures EYELID: eyelids normal Chest: COMMONS NORMALS: normal inspection of the chest Resp: COMMON NORMALS: normal respiratory effort EFFORT & INSPECTION: Yes able to speak in complete sentences and Yes symmetric chest movement Extremity: RIGHT LOWER EXTREMITY: Yes hip joint Right hip: Yes inspection (Minimal to no swelling), Yes palpation (Minimal pain, no ecchymosis) and Yes neurovascular exam (Intact with no evidence of DVT) Neuro: COMMON NORMALS: patient oriented x3 SENSORIUM/ORIENTATION: Yes alert, Yes oriented to person, Yes oriented to place and Yes oriented to time SPEECH: speech normal GAIT: Yes Normal gait present Psych: ATTITUDE: Yes calm and Yes engaged ACTIVITY/MOTOR BEHAVIOR: Yes appropriate eye contact ATTENTION/CONCENTRATION: Yes attention grossly intact MEMORY/COGNITION: Yes memory grossly intact Skin: COMMON NORMALS: no rashes or lesions noted and turgor normal; negative for no jaundice GENERAL SKIN EXAM: no rashes or lesions noted, turgor normal and no jaundice Urinary Catheter Management: Gallego: Cath Placed During This Visit: yes, but has since been removed by the nurse Reason for Continuing Indwelling Catheter: Decision to DC Catheter Urinary Catheter Date of Insertion: 03/01/23 Urinary Catheter Time of Insertion: 13:25 Date Urinary Catheter Removed: 03/02/23 Time Urinary Catheter Discontinued: 05:11 Discharge Data Studies Completed and Pending Completed Studies During Hospitalization Category Date Time Status XR pelvis 1-2V* [id number] Routine Exams 03/01/23 16:15 Completed Pending at discharge Category Date Time Status Complete Blood Count w/Auto AM LABS Lab 03/03/23 04:00 Ordered Complete Blood Count w/Auto AM LABS Lab 03/04/23 04:00 Ordered Radiology Impressions Pelvis X-Ray 03/01/23 16:15 IMPRESSION: No unexpected postoperative findings. Laboratory Results WBC 7.73 10^3/uL (3.29-11.43) 03/02/23 04:17 RBC 3.52 10^6/uL (3.85-5.65) L 03/02/23 04:17 Hgb 10.60 g/dL (11.27-16.99) L 03/02/23 04:17 Hct 32.8 % (37-53) L 03/02/23 04:17 MCV 93.2 fl (82-101) 03/02/23 04:17 MCH 30.1 pg (27-33) 03/02/23 04:17 MCHC 32.3 g/dL (30-55) 03/02/23 04:17 RDW 13.2 % (12.1-15.1) 03/02/23 04:17 Plt Count 162 10^3/cmm (157-399) 03/02/23 04:17 MPV 9.6 fL (7.4-10.4) 03/02/23 04:17 Neut % (Auto) 79.6 % 03/02/23 04:17 Lymph % (Auto) 10.1 % 03/02/23 04:17 Hopkins % (Auto) 9.2 % 03/02/23 04:17 Eos % (Auto) 0.3 % 03/02/23 04:17 Baso % (Auto) 0.4 % 03/02/23 04:17 Neut # (Auto) 6.16 10^3/uL (1.8-7.7) 03/02/23 04:17 Lymph # (Auto) 0.8 10^3/uL (0.8-4.8) 03/02/23 04:17 Hopkins # (Auto) 0.7 10^3/uL (0.2-0.9) 03/02/23 04:17 Eos # (Auto) 0.0 10^3/uL (0.0-0.8) 03/02/23 04:17 Baso # (Auto) 0.0 10^3/uL (0.0-0.1) 03/02/23 04:17 Nucleated RBC % (auto) 0 % 03/02/23 04:17 Nucleated RBCs # 0.0 /100WBC 03/02/23 04:17 Sodium 136 mmol/L (136-145) 03/02/23 04:17 Potassium 4.5 mmol/L (3.5-5.1) 03/02/23 04:17 Chloride 103 mmol/L (98-107) 03/02/23 04:17 Carbon Dioxide 24 mmol/L (22-29) 03/02/23 04:17 Anion Gap 13.5 (5-19) 03/02/23 04:17 BUN 15 mg/dL (8-23) 03/02/23 04:17 Creatinine 0.9 mg/dL (0.7-1.2) 03/02/23 04:17 GFR Calculation Not Reportable 03/02/23 04:17 Glucose 185 mg/dL (65-115) H 03/02/23 04:17 Calculated Osmolality 288 mOsm/kg (285-295) 03/02/23 04:17 Calcium 8.5 mg/dL (8.5-10.5) 03/02/23 04:17 Vitals Last Vital Signs Temp 98.6 F 03/02/23 11:42 Pulse 71 03/02/23 11:42 Resp 18 03/02/23 11:42 BP 103/62 03/02/23 11:42 Pulse Ox 92 03/02/23 11:42 O2 Del Method Room Air 03/02/23 11:42 O2 Flow Rate 1 03/02/23 00:00 Discharge Plan Discharge Patient Disposition: Home Health Service Condition: Stable Prescriptions: New celecoxib 200 mg Capsule 200 mg PO 1XD 30 Days Qty: 30 1RF acetaminophen 500 mg Tablet 1,000 mg PO Q8H 15 Days Qty: 90 0RF oxycodone 5 mg Tablet 5 mg PO Q4H PRN (Reason: Moderate Pain) 7 Days Qty: 30 0RF Continued enoxaparin [Lovenox] 100 mg/mL syringe 90 mg SUBCUT Q12H Qty: 3.6 0RF Rx Instructions: 02/27/23 one injection in the AM & PM, 02/28/23 one injection in the AM & PM. multivitamin Tablet 1 tab PO DAILY clopidogrel 75 mg tablet 75 mg PO DAILY Qty: 90 3RF Xarelto 20 mg tablet 20 mg PO QAM Qty: 90 3RF escitalopram oxalate 10 mg tablet 10 mg PO QAM lisinopril 2.5 mg tablet 2.5 mg PO DAILY Qty: 90 3RF Discontinued sulfamethoxazole-trimethoprim [Bactrim DS] 800-160 mg tablet 1 tab PO BID 5 Days Qty: 10 0RF Discharge Orders: Discharge Order (Routine); Ordered 03/02/23 Ordered By: Kimberli Bishop Other Ambulatory Orders: DME: [facility] (Order) Location: None Selected Ordered By: Kimberli RODRIGUEZ: [facility] (Order) Location: None Selected Ordered By: Kimberli Bishop Referrals: Kimberli Bishop MD [Physician] - 03/24/23 1:45 pm Discharge Diet: Advance as tolerated and Usual diet Discharge Activity: Limit activity as instructed, Use walker/crutches as instructed and As per PT/OT instructions Patient Instructions: Oxycodone, Rapid Release (By mouth), Celecoxib (By mouth), Total Hip Replacement (GEN), Hip Abduction Pillow (GEN), Joint Replacement Stoplight, Opioid Safety Activity Restrictions/Additional Instructions: Posterior precautions. Ice to right hip. Ambulate as instructed with physical therapy. Weightbearing as tolerated. You may shower with your clear plastic dressing in place, and remove it if it becomes loosened. Otherwise, we will remove it in the office. Discharge Attestations Time Spent in Discharge Care*: greater than 30 min Specific Discharge Activities: educating patient, educating and/or supporting family/caregiver, documenting/other paperwork and evaluating patient/reviewing data Quality Metrics Clinical Quality Measures [ No reported AMI, CVA or VTE this stay] Coding Level of Care Code Acute Code for Chg Fwd Diagnoses S/P total right hip arthroplasty Z96.641 Avascular necrosis of bone of right hip M87.051 Primary osteoarthritis of right hip M16.11 History of deep vein thrombosis Z86.718
[2023-03-02 15:28] VITALS: BP 103/62; PULSE 71; RESP 18; TEMP 37; O2SAT 92
== END 2023-03-02 15:29 | disposition home health service (06) ==
LOC: MEDSURG 15:47
PROVIDERS: Nurse Practitioner; Admitting Provider Specialist; PCP Family Medicine; Visit Provider Specialist
PROC: (CPT 27130; principal; 2023-03-01 12:15)
DX: M16.11 Unilateral primary osteoarthritis, right hip (principal); M25.751 Osteophyte, right hip; I25.10 Atherosclerotic heart disease of native coronary artery without angina pectoris; Z95.5 Presence of coronary angioplasty implant and graft; Z79.01 Long term (current) use of anticoagulants; Z86.718 Personal history of other venous thrombosis and embolism; I10 Essential (primary) hypertension; I25.2 Old myocardial infarction
CPT/HCPCS: 27130; 36415; 51702; 72170; 80048; 85025; 97110; 97116; 97161; 97166; 97535; C1776; G0378; J0131; J1170; J2405; J2704; J2710; J3010; J3490; J7030; P9045

== ENCOUNTER → 2023-03-24 14:01 | Outpatient (BNVA) | payer MEDICARE, MEDICAID, SELFPAY | PROVIDERS: PCP Family Medicine; Visit Provider Nurse Practitioner | DX: Z96.641 Presence of right artificial hip joint (principal); M87.051 Idiopathic aseptic necrosis of right femur; M16.11 Unilateral primary osteoarthritis, right hip | CPT/HCPCS: 73502; 99024 ==

== ENCOUNTER → 2023-04-25 08:14 | Outpatient (BNVA) | payer MEDICARE, MEDICAID, SELFPAY | PROVIDERS: PCP Family Medicine; Visit Provider Nurse Practitioner | DX: M16.0 Bilateral primary osteoarthritis of hip (principal); Z01.818 Encounter for other preprocedural examination; Z96.641 Presence of right artificial hip joint; M87.051 Idiopathic aseptic necrosis of right femur | CPT/HCPCS: 36415; 73523; 80053; 81003; 85025; 99214 ==

== ENCOUNTER → 2023-06-01 13:29 | Outpatient (BNVA) | payer MEDICARE, MEDICAID, SELFPAY | PROVIDERS: PCP Family Medicine; Visit Provider Specialist | DX: Z96.641 Presence of right artificial hip joint (principal); M87.052 Idiopathic aseptic necrosis of left femur; M16.12 Unilateral primary osteoarthritis, left hip | CPT/HCPCS: 73502; 99214 ==

== ENCOUNTER → 2023-06-06 14:15 | Outpatient (BNVA) | payer MEDICARE, MEDICAID, SELFPAY | PROVIDERS: PCP Family Medicine; Visit Provider Internal Medicine | DX: I25.10 Atherosclerotic heart disease of native coronary artery without angina pectoris (principal); Z86.718 Personal history of other venous thrombosis and embolism; Z79.01 Long term (current) use of anticoagulants | CPT/HCPCS: 99214 ==

== ENCOUNTER 2023-06-30 16:09 | Observation (INO) | payer MEDICARE, MEDICAID, SELFPAY ==
[2023-06-30] VITALS (13 sets, daily range): BP systolic 114–144; BP diastolic 60–92; PULSE 61–84; RESP 14–18; TEMP 35.9–36.5; O2SAT 92–100; BMI 30.4; BMI 31.1
--- NOTE | 2023-06-30 10:02 | W.PM.OPSUD ---
Surgery/Procedure H&P Update DATE OF PROCEDURE: June 30, 2023 DATE H&P PERFORMED: 06/03/23 H&P UPDATE INFORMATION: I have reviewed H&P completed within last 30 days, No changes to prior documentation and H&P is in [facility] EMR on date indicated PLANNED PROCEDURE: Operation Date: 06/30/23 11:20 Proposed Procedures p Total Hip Arthroplasty(Left) - Kimberli Bishop MD Related Problem List Diagnoses (1) Avascular necrosis of bone of left hip: (2) Primary osteoarthritis of left hip:
[2023-06-30] MEDS: gabapentin 300 mg Capsule PO (10:48)
[2023-06-30] MEDS: CELEcoxib 200 mg Capsule 400 MG PO (10:48)
[2023-06-30] MEDS: sodium chloride 0.9% 1,000 ML 30 ML IV (10:50)
[2023-06-30] MEDS: acetaminophen 1,000 MG/100 ML PIGGYBACK 400 MG IV ×2 (10:50→18:16)
[2023-06-30 10:59] LABS: Basophils # 0.1 10^3/uL (0.0-0.1); Eosinophils # 0.1 10^3/uL (0.0-0.8); Eosinophils % 1.4 %; Hematocrit 44.5 % (37-53); Lymphocytes # 1.7 10^3/uL (0.8-4.8); Lymphocytes % 32.5 %; Mean Corpuscular HGB Conc 33.5 g/dL (30-55); Mean Corpuscular Volume 89.5 fl (82-101); Mean Platelet Volume 9.6 fL (7.4-10.4); Monocytes # 0.5 10^3/uL (0.2-0.9); Monocytes % 9.9 %; Neutrophils # 2.79 10^3/uL (1.8-7.7); Nucleated Red Blood Cells % 0 %; Platelet Count 226 10^3/cmm (157-399); Red Blood Count 4.97 10^6/uL (3.85-5.65); Red Cell Distribution Width 14.3 % (12.1-15.1); White Blood Count 5.07 10^3/uL (3.29-11.43)
[2023-06-30 11:13] LABS: Anion Gap 15.2 (5-19); Blood Urea Nitrogen 11 mg/dL (8-23); Calcium 9.5 mg/dL (8.5-10.5); Carbon Dioxide 26 mmol/L (22-29); Chloride 105 mmol/L (98-107); Creatinine Clr Calc Pharmacy 90.0367; Glucose 114 mg/dL (65-115); Osmolality Calculated 294 mOsm/kg (285-295); Potassium 4.2 mmol/L (3.5-5.1); Sodium 142 mmol/L (136-145)
[2023-06-30] MEDS: clindamycin 600 MG/50 ML PREMIX 100 MG IV (12:59)
[2023-06-30] MEDS: tranexamic acid 1,000 mg/10mL SDV 1000 MG (13:50)
[2023-06-30] MEDS: vancomycin 1,000 MG SDV 1000 MG INTRA-ARTI (13:51)
[2023-06-30] MEDS: vancomycin 1,000 MG SDV 1000 MG IRRIGATION (13:51)
--- NOTE | 2023-06-30 15:36 | P.ANESASSM_ITS ---
Pre-Anesthetic Assessment Height/Weight: Height 1.75 m Weight 93.416 kg Temp Pulse Resp BP Pulse Ox O2 Del Method 97.7 F 61 18 122/92 98 Room Air 06/30/23 10:00 06/30/23 10:00 06/30/23 10:00 06/30/23 10:00 06/30/23 10:00 06/30/23 10:09 Operation Date: 06/30/23 11:20 Proposed Procedures p Total Hip Arthroplasty(Left) - Kimberli Bishop MD Familial anesthetic complications: none Was Beta Ash taken within 24 hours: N/A Was Clonidine taken within 24 hours: N/A Last intake: Intake Last Liquid Date 06/29/23 Last Liquid Time 22:00 Last Solid Date 06/29/23 Last Solid Time 22:00 Social No alcohol and No tobacco Exam alert, oriented x 3, clear to auscultation bilaterally and regular rate & rhythm Airway Submandibular: within normal limits Cervical ROM: within normal limits Mallampati: Class II Dentition: chipped Comments: Comments: Missing most CV/HEM Arrythmia, Coronary Artery Disease (Stents), Deep Vein Thrombosis and Myocardial Infarction [facility] Osteoarthritis/DJD Anesthetic Plan ASA status: 3 Anesthesia: Regional (specify below) (SAB) Medications/Allergies Home Medications Medication Instructions Recorded Confirmed Last Taken Type escitalopram oxalate 10 mg tablet 10 mg PO QAM 08/23/22 06/06/23 02/28/23 History clopidogrel 75 mg tablet 75 mg PO DAILY #90 tabs 02/14/23 06/29/23 06/22/23 Rx rivaroxaban 20 mg tablet (Xarelto) 20 mg PO QAM #90 tabs 02/14/23 06/29/23 06/22/23 Rx multivitamin 1 tab PO DAILY 02/21/23 06/29/23 Unknown History celecoxib 200 mg capsule 200 mg PO 1XD 30 days #30 caps 03/02/23 06/29/23 06/22/23 Rx enoxaparin 100 mg/mL subcutaneous 90 mg (0.9 mL) SUBCUT Q12H 2 days 06/28/23 06/29/23 06/29/23 Rx syringe (Lovenox) #3.6 mL Allergies Allergy/AdvReac Type Severity Reaction Status Date / Time Penicillins Allergy ALGY-Anaphy Verified 06/06/23 14:31 laxis atorvastatin AdvReac Mild nausea Uncoded 06/06/23 14:31 Current Medications Generic Name Dose Route Start Last Admin Trade Name Adarsh PRN Reason Stop Dose Admin Sodium Chloride 1,000 mls @ 30 mls/hr 06/30/23 09:45 06/30/23 14:19 Sodium Chloride 0.9% IV 07/01/23 09:44 Infused .Q24H MAYA Infusion PFSH Anesthesia Medical History Primary osteoarthritis of left hip Coronary artery disease 08/23/2022: STEPHANIE x1 to mid circumflex, STEPHANIE x1 to distal circumflex. History of deep vein thrombosis STEMI (ST elevation myocardial infarction) Family History Other CAD (coronary artery disease) Data Anesthesia 06/30/23 10:30 06/30/23 10:30 Short CBC 06/30/23 Range/Units 10:30 WBC 5.07 (3.29-11.43) 10^3/uL Hgb 14.90 (11.27-16.99) g/dL Hct 44.5 (37-53) % MCV 89.5 (82-101) fl Plt Count 226 (157-399) 10^3/cmm Neut % (Auto) 55.0 % Neut # (Auto) 2.79 (1.8-7.7) 10^3/uL BMP 06/30/23 10:30 Sodium 142 Potassium 4.2 Chloride 105 Carbon Dioxide 26 BUN 11 Creatinine 0.8 Glucose 114 Calcium 9.5 Cardiac Studies: 2 Echocardiogram 08/23/22
--- NOTE | 2023-06-30 16:14 | XRR_ITS ---
PROCEDURE INFORMATION: Exam: XR Pelvis Exam date and time: 06/30/2023 3:18 PM Age: 73 years old Clinical indication: Device placement; Prior surgery; Surgery date: Post-operative (0-2 days); Surgery type: Hip; Additional info: Post op TECHNIQUE: Imaging protocol: Radiologic exam of the pelvis. Views: 1 or 2 view. COMPARISON: CR (PELVIS AP, HIP, PELVIS AP) 06/01/2023 1:31 PM FINDINGS: Bones/joints: Hip arthroplasty alignment is unremarkable. Negative for fracture. Proximal left thigh gas. Soft tissues: Unremarkable. XR/XR pelvis 1-2V* [id number] IMPRESSION: Unremarkable postsurgical changes.
--- NOTE | 2023-06-30 16:42 | P.OP_ITS ---
Operative Report Date of procedure: June 30, 2023 Pre-op diagnosis: Severe degenerative osteoarthritis of the right hip secondary to avascular necrosis Post-op diagnosis: Severe degenerative osteoarthritis of the right hip secondary to avascular necrosis Post-op findings: Severe avascular necrosis with femoral head collapse and large osteophytes Procedure done: Right total hip arthroplasty Implants: The [place] total hip system with a size 56 mm by F alpha code Trident II Tritanium acetabular shell with an MDM liner size 46 mm inner diameter by F alpha code.? A size 11 Accolade II 127? neck angle hip stem with a size 28 mm x +4 mm femoral head and a jain MDM X3 insert size 28 mm x 46F Specimens removed/disposition: Bone, disposed of Pathology: None sent Surgeon: Kimberli Bishop MD Fiber Product Cutting Machine Operator: [facility] operating room technicians Anesthesia: General (Intubated, ASA 3) Estimated blood loss (mL): 110 IV fluids (mL): 1,400 Urine output (mL): 150 Complications: None Findings: Severe degenerative osteoarthritis of the right hip. The hip was stable at 90 degrees of flexion with 80 degrees of internal rotation and 20 degrees of adduction. It was also stable to external rotation and toe hang. Condition: stable Disposition: PACU (Then to floor for postoperative rehabilitation and pain management) Brief History: This 73-year-old gentleman presented to the office initially with complaints of bilateral hip pain. In February of last year, he underwent right total knee arthroplasty. Today, the patient presents for left total hip arthroplasty secondary to avascular necrosis. He has significant limitations in his activities of daily living. Risks and complications were discussed with the patient and consents were signed in the office. Procedure: Patient was brought to the operating theater.? He was transferred to the operating room table and subsequently administered a general anesthesia, intubated, ASA 3.? Following administration of adequate anesthesia, the patient was placed in full lateral position and held in position with a pegboard.? The patient's left lower extremity was then prepped and draped in usual fashion utilizing DuraPrep.? It was draped free.? Following prepping and draping, a surgical pause was performed.? At the time of surgical pause, we identified the site and side of surgery.? We also identified the patient and preoperative surgical markings.?The patient's operative leg was compared to the opposite leg.? Confirmation was made of equipment availability.? Additionally, the jessy flower's preoperative IV antibiotic, clindamycin 600 mg, and TXA administration was confirmed as well.? X-rays were also reviewed. Following the surgical pause, an incision was made centering over the patient's greater trochanter continuing proximally and distally as necessary to allow access to the hip joint.? Dissection continued through skin and soft tissues using a scalpel, and hemostasis was obtained using electrocautery. The tensor fascia rikki was identified and incised longitudinally.? Sciatic nerve was identified and protected throughout the surgical procedure.? A Charnley U retractor was placed after the tensor fascia rikki had been incised longitudinally, and the sciatic nerve had been identified.? The hip was internally rotated, and the piriformis muscle was identified and tagged. Piriformis muscle along with the remaining short external rotators were then incised from the posterior aspect of the hip joint.? These were retracted posteriorly.? The capsule was entered in a T-type fashion with the edges being tagged, and subsequently the hip was dislocated.? The labrum was excised with further excision accomplished once the femoral head was removed.? Following hip dislocation, a femoral neck osteotomy was accomplished in the appropriate position.? The head was measured, but it was quite deformed.? We then evaluated the acetabulum. The femur was retracted anteriorly.? Soft tissues were retracted, and the labrum was removed.? Labrum was noted to be quite large and deformed. We then began reaming.? Once the femoral head was removed, there was noted to be significant l oss of cartilage over the head with the previously noted deformity and cartilage loss within the acetabulum.? We reamed to a size 55 to allow for a size 56 acetabular shell.? The acetabulum was impacted into position.? The MDM liner was then impacted into position with care being taken to assure it seated appropriately.? It was noted that the acetabulum matched the bony anatomy.? The cup was noted to seat nicely and had good fixation upon impact. Large osteophytes were removed from the anterior aspect of the acetabulum following cup insertion. Attention was directed to the proximal femur.? The proximal femur was lifted out of the wound.? A canal finder was passed after the box chisel.? The reamer was used to lateralize.? We then began broaching. We broached sequentially and had excellent fit and fill with the size 11 broach. ? A trial reduction was attempted with a +0 mm femoral head initially, but it was felt that over time, the soft tissues would stretch out, and this would become less stable. Because of this, we then placed a +4 mm femoral head which initially was difficult to reduce, but following movement of the hip, it was noted to loosen up slightly. Therefore, we elected to again perform trial reduction after the femoral component was placed.? With this construct, with the final trial, the hip was noted to be stable, and leg length was felt to be equal.? The final construct included a +4 mm femoral head with the above-noted stem and acetabulum. With this in place, we had the above stabilities.? This was felt to be excellent stability. Therefore, trial components were removed after the hip was dislocated.? The size 11 Accolade II 127? neck angle stem was impacted into position without difficulty and onto this was placed a +4 mm x 28 mm femoral head which had been assembled into the MDM insert size 46F.? With a +4 mm femoral head, we had the above-noted stability.? The stem was noted to seat nicely prior to placement of the femoral head.? The wound was copiously irrigated with 20 mL of Betadine and 500 mL of normal saline mixed together.? Subsequently, we suctioned this out and irrigated the wound copiously with lactated Ringer's.? At this time, with all components in appropriate position, the hip was reduced.? Following reduction of the prosthesis once again, we confirmed the stability of the hip.? Leg lengths were also felt to be satisfactory. Being satisfied with the prosthesis, attention was directed to closure.? Closure was accomplished with 0 Vicryl in the capsular tissues.? Piriformis was reattached with 0 Vicryl as well.? Tensor fascia rikki was closed with 0 Vicryl in an interrupted fashion.? The subcutaneous tissues were closed with combination of 0 Vicryl and 2-0 Monocryl.? Vancomycin powder and a Gelfoam thrombin mixture was placed into the wound as well.? The skin was closed with a running 3-0 STRATAFIX followed by Dermabond Prineo followed by OpSite.? The patient was placed in an abduction pillow.? He was returned the Recovery Room in a satisfactory condition and will be discharged to the floor for postoperative rehabilitation and pain management.? There were no complications or specimens. Related Problem List Diagnoses (1) Primary osteoarthritis of left hip: (2) Avascular necrosis of bone of left hip:
--- NOTE | 2023-06-30 17:25 | ANE.PACU2 ---
Inpatient post-anesthesia follow up: Airway intact: Yes Vital signs: Temperature 97.5 F Pulse Rate 75 Respiratory Rate 16 Blood Pressure 144/80 Pulse Oximetry 95 Oxygen Delivery Me thod Room Air Oxygen Flow Rate 6 Fraction of Inspir ed Oxygen Hydration adequate: Yes Nausea and vomiting: No Pain level: 3 Mental status: Baseline
[2023-06-30] MEDS: chlorhexidine gluconate 0.12% Btl 473 mL 30 ML MUCOUS MEM ×2 (18:14→20:07)
[2023-06-30] MEDS: calcium carbonate 500 mg Chew Tablet 1000 MG PO (18:15)
[2023-06-30] MEDS: sennosides-docusate Tablet 2 TAB PO (18:15)
[2023-06-30] MEDS: mupirocin oint 22 gm 1 APPLIC NASAL (18:15)
[2023-06-30] MEDS: iron polysaccharide complex 150 mg Capsule PO (18:15)
[2023-06-30] MEDS: oxyCODONE 5 mg IR Tab/Cap PO (20:00)
[2023-06-30] MEDS: clindamycin 900 MG/50 ML PREMIX 100 MG IV (20:02)
[2023-07-01] MEDS: acetaminophen 1,000 MG/100 ML PIGGYBACK 400 MG IV ×2 (02:31→11:26)
[2023-07-01 03:11] LABS: Basophils % 0.2 %; Hematocrit 36.5 % (37-53); Lymphocytes # 0.7 10^3/uL (0.8-4.8); Mean Corpuscular HGB Conc 32.3 g/dL (30-55); Mean Corpuscular Hemoglobin 29.4 pg (27-33); Mean Corpuscular Volume 90.8 fl (82-101); Mean Platelet Volume 9.6 fL (7.4-10.4); Monocytes # 0.9 10^3/uL (0.2-0.9); Monocytes % 7.7 %; Neutrophils # 9.78 10^3/uL (1.8-7.7); Neutrophils % 85.7 %; Nucleated Red Blood Cells % 0 %; Platelet Count 189 10^3/cmm (157-399); Red Blood Count 4.02 10^6/uL (3.85-5.65); Red Cell Distribution Width 14.1 % (12.1-15.1)
[2023-07-01 03:29] LABS: Anion Gap 12.8 (5-19); Blood Urea Nitrogen 12 mg/dL (8-23); Calcium 8.8 mg/dL (8.5-10.5); Carbon Dioxide 23 mmol/L (22-29); Chloride 102 mmol/L (98-107); Creatinine Clr Calc Pharmacy 91.0302; Glucose 142 mg/dL (65-115); Osmolality Calculated 278 mOsm/kg (285-295); Potassium 4.8 mmol/L (3.5-5.1); Sodium 133 mmol/L (136-145)
[2023-07-01 04:36] VITALS: BP 105/65; PULSE 69; RESP 16; TEMP 36.4; O2SAT 93
[2023-07-01] MEDS: clindamycin 900 MG/50 ML PREMIX 100 MG IV ×2 (05:07→11:57)
[2023-07-01] MEDS: rivaroxaban 10 mg Tablet 20 MG PO (05:07)
[2023-07-01] MEDS: escitalopram 10 mg Tablet PO (05:07)
[2023-07-01 07:44] VITALS: BP 105/66; PULSE 69; RESP 15; TEMP 36.4; O2SAT 94
[2023-07-01 07:57] VITALS: RESP 18
[2023-07-01] MEDS: oxyCODONE 5 mg IR Tab/Cap PO (07:57)
[2023-07-01] MEDS: calcium carbonate 500 mg Chew Tablet 1000 MG PO (08:23)
[2023-07-01] MEDS: cholecalciferol (vitamin D3) 1,000 unit Tablet 1000 UNIT PO (08:23)
[2023-07-01] MEDS: sennosides-docusate Tablet 2 TAB PO (08:23)
[2023-07-01] MEDS: chlorhexidine gluconate 0.12% Btl 473 mL 30 ML MUCOUS MEM ×2 (08:24→14:10)
[2023-07-01] MEDS: CELEcoxib 200 mg Capsule PO (08:24)
[2023-07-01] MEDS: mupirocin oint 22 gm 1 APPLIC NASAL (08:24)
[2023-07-01] MEDS: clopidogrel 75 mg Tablet PO (08:24)
[2023-07-01] MEDS: multivitamin therapeutic Tablet 1 TAB PO (08:24)
[2023-07-01] MEDS: iron polysaccharide complex 150 mg Capsule PO (08:24)
--- NOTE | 2023-07-01 09:07 | PC.CHAP ---
Pastoral Care Encounter/Spiritual Assessment Type of Contact [] Declined attending physician visit [] Patient/Family/Request visit [] Outpatient visit [] Follow-up visit [] Physician referral [] Code/Alert [] Routine visit [] Staff referral [] Actively dying [] Patient sleeping [] Family support [] [x] Out of room [] Palliative care [] [] Receiving care in room [] Pre-surgical visit [] Trauma [] Long length of stay [] ICU visit [] Other: Relational/Emotional Strength [] Patient feels connected with others/family/visitors/staff [] Distress [] Loneliness/isolation [] Abandonment Spirituality of Patient [] Person of Rola [] Attends Denominational of their Rola [] Believes in Prayer [] Reads Bible or Methodist materials [] There are Spiritual issues to be addressed Financial Recruiter Interventions [] Prayer [] Active listening [] Non-anxious presence [] Spiritual/emotional support [] Crisis/trauma care [] Spiritual counseling [] Bereavement support [] Provided bereavement packet [] Provided Bible/devotional materials [] Provided toy/stuffed animal, coloring book to patient or family member [] Provided Communion [] Anointing/[place] [] Salvation [] Completed spiritual assessment [] Other: Impact on Illness or Injury [] Angry [] Fearful [] Anxious [] Often cries [] Exhaustion [] Unable to work [] Unable to attend jainism [] Unable to walk/stand [] Unable to read [] Unable to drive [] Unable to eat/drink [] Unable to sleep [] Unable to be with family [] Patient intubated [] Other: Summary Time spent with patient
[2023-07-01 11:29] VITALS: BP 100/63; PULSE 76; RESP 14; TEMP 36.6; O2SAT 93
--- NOTE | 2023-07-01 15:17 | P.DS_ITS ---
Discharge Providers Date of Admission: 06/30/23 16:09 Date of Discharge: July 01, 2023 Attending Provider at Admission: Kimberli Bishop MD Attending Provider at Discharge: Kimberli Bishop MD Primary Care Provider: Sukhjinder Hinojosa Diagnoses at Discharge Discharge Diagnosis (1) Primary osteoarthritis of left hip: Status: Chronic (2) Avascular necrosis of bone of left hip: Status: Acute (3) Status post total hip replacement, left: Status: Acute Permanent problem details: Date of procedure: June 30, 2023 Diagnosis: Severe degenerative osteoarthritis of the right hip secondary to avascular necrosis Procedure done: Right total hip arthroplasty Implants: The Gurmeet total hip system with a size 56 mm by F alpha code Trident II Tritanium acetabular shell with an MDM liner size 46 mm inner diameter by F alpha code. A size 11 Accolade II 127? neck angle hip stem with a size 28 mm x +4 mm femoral head and a nondenominational MDM X3 insert size 28 mm x 46F Reason for Visit Reason for Visit: M16.12 Brief History: This 73-year-old gentleman presented to the office initially with complaints of bilateral hip pain. In February of last year, he underwent right total knee arthroplasty. Today, the patient presents for left total hip arthroplasty secondary to avascular necrosis. He has significant limitations in his activities of daily living. Risks and complications were discussed with the patient and consents were signed in the office. Hospital Course Hospital Course Patient was admitted under observation status following right total hip arthroplasty. The patient did well with physical therapy and was considered safe for discharge to home. He was independent in activities and was comfortable on oral pain medications. Therefore, as the patient's physical findings were negative for any complication, plans were made for discharge home. There was no evidence of DVT, and the patient was neurologically intact. Physical Exam Const: COMMON NORMALS: no acute distress, average body habitus, patient oriented x3 and alert GENERAL APPEARANCE: cooperative and comfortable ORIENTATION/CONSCIOUSNESS: Yes awake HENMT: COMMON NORMALS: normocephalic and atraumatic HEAD & SCALP: normocephalic and atraumatic Eye: GENERAL EYE: appearance normal, both eyes and all related structures Chest: COMMONS NORMALS: normal inspection of the chest Resp: COMMON NORMALS: normal respiratory effort EFFORT & INSPECTION: Yes able to speak in complete sentences and Yes symmetric chest movement Extremity: RIGHT LOWER EXTREMITY: Yes hip joint (Dressing dry and intact) Right hip: Yes inspection (No significant ecchymosis or swelling), Yes palpation (Minimal to no tenderness), Yes ROM (Not evaluated) and Yes neurovascular exam (Intact distally with no evidence of DVT) Neuro: COMMON NORMALS: patient oriented x3 SENSORIUM/ORIENTATION: Yes alert Psych: COMMON NORMALS: mental status grossly normal APPEARANCE: Yes grossly normal ATTITUDE: Yes calm and Yes engaged ATTENTION/CONCENTRATION: Yes attention grossly intact Skin: COMMON NORMALS: no rashes or lesions noted GENERAL SKIN EXAM: no rashes or lesions noted Urinary Catheter Management: Gallego: Cath Placed During This Visit: yes, but has since been removed by the nurse Reason for Continuing Indwelling Catheter: Decision to DC Catheter Urinary Catheter Date of Insertion: 06/30/23 Urinary Catheter Time of Insertion: 13:00 Date Urinary Catheter Removed: 07/01/23 Time Urinary Catheter Discontinued: 06:15 Discharge Data Studies Completed and Pending Completed Studies During Hospitalization Category Date Time Status XR pelvis 1-2V* [id number] Routine Exams 06/30/23 16:14 Completed Radiology Impressions Pelvis X-Ray 06/30/23 16:14 IMPRESSION: Unremarkable postsurgical changes. Laboratory Results WBC 11.40 10^3/uL (3.29-11.43) 07/01/23 02:55 RBC 4.02 10^6/uL (3.85-5.65) 07/01/23 02:55 Hgb 11.80 g/dL (11.27-16.99) 07/01/23 02:55 Hct 36.5 % (37-53) L 07/01/23 02:55 MCV 90.8 fl (82-101) 07/01/23 02:55 MCH 29.4 pg (27-33) 07/01/23 02:55 MCHC 32.3 g/dL (30-55) 07/01/23 02:55 RDW 14.1 % (12.1-15.1) 07/01/23 02:55 Plt Count 189 10^3/cmm (157-399) 07/01/23 02:55 MPV 9.6 fL (7.4-10.4) 07/01/23 02:55 Neut % (Auto) 85.7 % 07/01/23 02:55 Lymph % (Auto) 6.0 % 07/01/23 02:55 Bound[place] % (Auto) 7.7 % 07/01/23 02:55 Eos % (Auto) 0.0 % 07/01/23 02:55 Baso % (Auto) 0.2 % 07/01/23 02:55 Neut # (Auto) 9.78 10^3/uL (1.8-7.7) H 07/01/23 02:55 Lymph # (Auto) 0.7 10^3/uL (0.8-4.8) L 07/01/23 02:55 Bound[place] # (Auto) 0.9 10^3/uL (0.2-0.9) 07/01/23 02:55 Eos # (Auto) 0.0 10^3/uL (0.0-0.8) 07/01/23 02:55 Baso # (Auto) 0.0 10^3/uL (0.0-0.1) 07/01/23 02:55 Nucleated RBC % (auto) 0 % 07/01/23 02:55 Nucleated RBCs # 0.0 /100WBC 07/01/23 02:55 Sodium 133 mmol/L (136-145) L 07/01/23 02:55 Potassium 4.8 mmol/L (3.5-5.1) 07/01/23 02:55 Chloride 102 mmol/L (98-107) 07/01/23 02:55 Carbon Dioxide 23 mmol/L (22-29) 07/01/23 02:55 Anion Gap 12.8 (5-19) 07/01/23 02:55 BUN 12 mg/dL (8-23) 07/01/23 02:55 Creatinine 0.8 mg/dL (0.7-1.2) 07/01/23 02:55 GFR Calculation Not Reportable 07/01/23 02:55 Glucose 142 mg/dL (65-115) H 07/01/23 02:55 Calculated Osmolality 278 mOsm/kg (285-295) L 07/01/23 02:55 Calcium 8.8 mg/dL (8.5-10.5) 07/01/23 02:55 Vitals Last Vital Signs Temp 97.8 F 07/01/23 11:29 Pulse 76 07/01/23 11:29 Resp 14 07/01/23 11:29 BP 100/63 07/01/23 11:29 Pulse Ox 93 07/01/23 11:29 O2 Del Method Room Air 07/01/23 11:29 O2 Flow Rate 6 06/30/23 16:11 Discharge Plan Discharge Patient Disposition: Home Health Service Condition: Stable Prescriptions: New acetaminophen 500 mg Tablet 1,000 mg PO Q8H 15 Days Qty: 0 0RF oxycodone 5 mg Tablet 5 - 10 mg PO Q4H PRN (Reason: Moderate Pain) 7 Days Qty: 40 0RF Continued multivitamin Tablet 1 tab PO DAILY clopidogrel 75 mg tablet 75 mg PO DAILY Qty: 90 3RF Xarelto 20 mg tablet 20 mg PO QAM Qty: 90 3RF enoxaparin [Lovenox] 100 mg/mL syringe 90 mg SUBCUT Q12H 2 Days Qty: 3.6 0RF Rx Instructions: one shot every 12 hours celecoxib 200 mg Capsule 200 mg PO 1XD 30 Days Qty: 30 1RF escitalopram oxalate 10 mg tablet 10 mg PO QAM Discharge Orders: Discharge Order (Routine); Ordered 07/01/23 Ordered By: Kimberli Bishop Referrals: Home Health [facility] [Outside] Kimberli Bishop MD [Physician] - 08/02/23 2:00 pm Discharge Diet: Advance as tolerated and Usual diet Discharge Activity: Increase activity as tolerated, Limit activity as instructed, Use walker/crutches as instructed and As per PT/OT instructions Patient Instructions: Oxycodone, Rapid Release (By mouth), Precautions after Total Joint Replacement Surgery (DC), Joint Replacement Surgery (DC), Opioid Safety Activity Restrictions/Additional Instructions: Ice to left hip. He may weight-bear as tolerated. Posterior hip precautions as instructed. Maintain current dressing until it comes off on its own. You may shower, but do not soak your hip in water. Follow-up as scheduled. Discharge Attestations Time Spent in Discharge Care*: greater than 30 min Specific Discharge Activities: educating patient, documenting/other paperwork and evaluating patient/reviewing data Quality Metrics Clinical Quality Measures [ No reported AMI, CVA or VTE this stay] Coding Level of Care Code Acute Code for [facility] Fwd Diagnoses Primary osteoarthritis of left hip M16.12 Avascular necrosis of bone of left hip M87.052 Status post total hip replacement, left Z96.642
== END 2023-07-01 16:25 | disposition home health service (06) ==
LOC: MEDSURG 16:09
PROVIDERS: Anesthesiology; Admitting Provider Specialist; PCP Family Medicine; Visit Provider Specialist
PROC: (CPT 27130; principal; 2023-06-30 11:20)
DX: M16.11 Unilateral primary osteoarthritis, right hip (principal); M25.751 Osteophyte, right hip; M87.052 Idiopathic aseptic necrosis of left femur; I25.10 Atherosclerotic heart disease of native coronary artery without angina pectoris; Z95.5 Presence of coronary angioplasty implant and graft; I25.2 Old myocardial infarction; Z86.718 Personal history of other venous thrombosis and embolism
CPT/HCPCS: 27130; 36415; 51702; 72170; 80048; 85025; 97110; 97116; 97161; 97166; 97530; C1713; C1776; G0378; J0131; J1100; J1170; J2405; J2704; J2710; J3010; J3370; J3490; J7030

== ENCOUNTER 2023-07-13 08:42 | Emergency (ER) | payer MEDICARE, MEDICAID, SELFPAY ==
[2023-07-13] VITALS (7 sets, daily range): BP systolic 122–160; BP diastolic 57–87; PULSE 66–76; RESP 15–18; TEMP 36.4; O2SAT 95–100; BMI 27.3
--- NOTE | 2023-07-13 09:02 | XRR_ITS ---
PROCEDURE INFORMATION: Exam: XR Left Hip Exam date and time: 07/13/2023 9:05 AM Age: 73 years old Clinical indication: Hip pain; Prior surgery; Surgery date: <1 month; Surgery type: Left hip 2 weeks ago TECHNIQUE: Imaging protocol: Radiologic exam of the left hip. Views: 2 or 3 views hip with pelvis when performed. COMPARISON: CR XR pelvis 1-2V* [id number] 06/30/2023 3:18 PM FINDINGS: Bones/joints: Total hip replacement. Anatomic alignment. Bone and metal are intact. Slight periarticular gas. Soft tissues: Unremarkable. XR/XR hip LT 2-3V wo/w pel* [id number] IMPRESSION: Expected postoperative findings.
--- NOTE | 2023-07-13 10:08 | ED_ITS ---
HPI - Extremity Problem 2 General: Chief complaint: Extremity Injury, Lower Stated complaint: Hip pain Time Seen by Provider: 07/13/23 09:01 Source: patient Mode of arrival: EMS History of Present Illness: 73-year-old male presents emergency room with complaint of left hip pain. 2 weeks ago patient had a left hip arthroplasty he is complaining of pain and swelling at the hip joint mostly anteriorly he denies any fall. When he arrived here via EMS he was able to stand and pivot to get to the cot but he states at home he is unable to ambulate. No fever sweats chills no drainage from the wound. MD Complaint: joint pain Associated symptoms: Deny chest pain, fever(s) or rash Review of Systems 2 Const: Denies: fever(s) or chills Card: Denies: chest pain Resp: Denies: dyspnea GI: Denies: abdominal pain : Denies: dysuria, urinary frequency or urinary urgency Musc: Denies: neck pain or back pain Skin/Breast: Denies: rash PFSH ED 2 PFSH: Medical History Primary osteoarthritis of left hip Coronary artery disease 08/23/2022: STEPHANIE x1 to mid circumflex, STEPHANIE x1 to distal circumflex. History of deep vein thrombosis STEMI (ST elevation myocardial infarction) Family History Other CAD (coronary artery disease) Physical Exam 2 Const: COMMON NORMALS: no acute distress GENERAL APPEARANCE: cooperative and comfortable ORIENTATION/CONSCIOUSNESS: Yes awake, Yes oriented to person, Yes oriented to place and Yes oriented to time HENMT: COMMON NORMALS: normocephalic, atraumatic and hearing grossly normal bilaterally HEAD & SCALP: normocephalic and atraumatic Resp: COMMON NORMALS: normal respiratory effort, No retractions, No use of accessory muscles and clear to auscultation bilaterally AUSCULTATION: clear to auscultation bilaterally Cardio: COMMON NORMALS: regular rate, regular rhythm and No murmurs present (Cardio) RATE: regular rate RHYTHM: regular rhythm GI: COMMON NORMALS: Soft to palpation and No hepatosplenomegaly present A USCULTATION: Yes normoactive bowel sounds PALPATION: Yes Soft to palpation, No Tenderness to palpation present (GI), No Guarding due to palpation present (GI) and Yes No hepatosplenomegaly present Extremity: COMMON NORMALS: normal to inspection, capillary refill normal, no clubbing, cyanosis or edema, no calf tenderness and no pedal edema Neuro: SENSORIUM/ORIENTATION: Yes oriented to person, Yes oriented to place and Yes oriented to time Skin: COMMON NORMALS: no rashes or lesions noted GENERAL SKIN EXAM: no rashes or lesions noted Course 2 Vital Signs: Vital signs: Vital Signs Temperature 97.5 F L 07/13/23 08:45 Pulse Rate 76 07/13/23 14:02 Respiratory Rate 15 07/13/23 11:18 Blood Pressure 141/69 07/13/23 14:02 Pulse Oximetry 98 07/13/23 14:02 Oxygen Delivery Me thod Room Air 07/13/23 08:58 MDM - Extremity (Nontraumatic) Medical Decision Making Patient has soft tissue swelling anterior to the hip. CT done there is no fracture which is concurrent with the plain film that shows a posterior seroma. Reviewed with Dr. Heart who did the procedure. No other acute findings. Will discharge patient home have him follow-up with orthopedics as planned. Medical Records I reviewed the patient's medical records. Lab Data I reviewed the patient's lab results. 07/13/23 09:48 07/13/23 09:48 Radiology Impressions Hip/Pelvis X-Ray 07/13/23 09:02 IMPRESSION: Expected postoperative findings. Laboratory Results WBC 7.24 10^3/uL (3.29-11.43) 07/13/23 09:48 RBC 4.02 10^6/uL (3.85-5.65) 07/13/23 09:48 Hgb 11.90 g/dL (11.27-16.99) 07/13/23 09:48 Hct 36.6 % (37-53) L 07/13/23 09:48 MCV 91.0 fl (82-101) 07/13/23 09:48 MCH 29.6 pg (27-33) 07/13/23 09:48 MCHC 32.5 g/dL (30-55) 07/13/23 09:48 RDW 14.4 % (12.1-15.1) 07/13/23 09:48 Plt Count 453 10^3/cmm (157-399) H 07/13/23 09:48 MPV 8.8 fL (7.4-10.4) 07/13/23 09:48 Neut % (Auto) 60.2 % 07/13/23 09:48 Lymph % (Auto) 23.1 % 07/13/23 09:48 [place] % (Auto) 8.1 % 07/13/23 09:48 Eos % (Auto) 6.8 % 07/13/23 09:48 Baso % (Auto) 1.4 % 07/13/23 09:48 Neut # (Auto) 4.36 10^3/uL (1.8-7.7) 07/13/23 09:48 Lymph # (Auto) 1.7 10^3/uL (0.8-4.8) 07/13/23 09:48 [place] # (Auto) 0.6 10^3/uL (0.2-0.9) 07/13/23 09:48 Eos # (Auto) 0.5 10^3/uL (0.0-0.8) 07/13/23 09:48 Baso # (Auto) 0.1 10^3/uL (0.0-0.1) 07/13/23 09:48 Nucleated RBC % (auto) 0 % 07/13/23 09:48 Nucleated RBCs # 0.0 /100WBC 07/13/23 09:48 ESR 24 mm/hr (0-10) H 07/13/23 09:48 Sodium 138 mmol/L (136-145) 07/13/23 09:48 Potassium 4.2 mmol/L (3.5-5.1) 07/13/23 09:48 Chloride 102 mmol/L (98-107) 07/13/23 09:48 Carbon Dioxide 27 mmol/L (22-29) 07/13/23 09:48 Anion Gap 13.2 (5-19) 07/13/23 09:48 BUN 11 mg/dL (8-23) 07/13/23 09:48 Creatinine 0.8 mg/dL (0.7-1.2) 07/13/23 09:48 GFR Calculation Not Reportable 07/13/23 09:48 Glucose 122 mg/dL (65-115) H 07/13/23 09:48 Calculated Osmolality 287 mOsm/kg (285-295) 07/13/23 09:48 Calcium 9.3 mg/dL (8.5-10.5) 07/13/23 09:48 Total Bilirubin 0.3 mg/dL (0.15-1.2) 07/13/23 09:48 AST 13 U/L (0-40) 07/13/23 09:48 ALT 13 U/L (0-41) 07/13/23 09:48 Alkaline Phosphatase 157 U/L (40-130) H 07/13/23 09:48 C-Reactive Protein 11.7 mg/L (0.0-4.9) H 07/13/23 09:48 Total Protein 7.1 g/dL (6.6-8.7) 07/13/23 09:48 Albumin 3.7 g/dL (3.5-5.2) 07/13/23 09:48 Globulin 3.4 g/dL (1.3-4.6) 07/13/23 09:48 All radiology interpretation(s) finalized by discharge Discharge Plan Discharge Patient Disposition: Home Clinical Impression: Status post total hip replacement, left, Postoperative seroma Condition: Stable Prescriptions: No Action multivitamin Tablet 1 tab PO DAILY clopidogrel 75 mg tablet 75 mg PO DAILY Qty: 90 3RF Xarelto 20 mg tablet 20 mg PO QAM Qty: 90 3RF enoxaparin [Lovenox] 100 mg/mL syringe 90 mg SUBCUT Q12H 2 Days Qty: 3.6 0RF Rx Instructions: one shot every 12 hours celecoxib 200 mg Capsule 200 mg PO 1XD 30 Days Qty: 30 1RF escitalopram oxalate 10 mg tablet 10 mg PO QAM Discharge Orders: Discharge ED (Routine); Ordered 07/13/23 Ordered By: Sal Arthur Referrals: Sukhjinder Hinojosa [Primary Care Provider] - Patient Instructions: Opioid Safety, Pain Management Activity Restrictions/Additional Instructions: Thank you for choosing [facility] for your healthcare needs today. Please realize this is an emergency room and that we are providing you with a medical screening exam and this may not be complete and all inclusive of all the testing and or work up that you may need to determine your ailment or severity of your illness. It is very important that you follow up as instructed or that you return to the Emergency Department should you have concerns or if your condition changes or worsens in any way. You were seen today complaint of left hip pain. The CT did not show any acute fractures or abnormalities there is a fluid collection consistent with your recent surgery. There is no sign of infection at this time. Due to a left inguinal hernia but it is asymptomatic at this time. Reviewed your films with Dr. Heart who did your hip surgery. Since her no acute findings we both feel that he can be discharged home and follow-up with Dr. Heart as previously scheduled. Coding Level of Care Code ED [employer] for [employer]
[2023-07-13 10:11] LABS: Basophils # 0.1 10^3/uL (0.0-0.1); Basophils % 1.4 %; Eosinophils # 0.5 10^3/uL (0.0-0.8); Eosinophils % 6.8 %; Hematocrit 36.6 % (37-53); Lymphocytes # 1.7 10^3/uL (0.8-4.8); Lymphocytes % 23.1 %; Mean Corpuscular HGB Conc 32.5 g/dL (30-55); Mean Corpuscular Hemoglobin 29.6 pg (27-33); Mean Platelet Volume 8.8 fL (7.4-10.4); Monocytes # 0.6 10^3/uL (0.2-0.9); Monocytes % 8.1 %; Neutrophils # 4.36 10^3/uL (1.8-7.7); Neutrophils % 60.2 %; Nucleated Red Blood Cells % 0 %; Platelet Count 453 10^3/cmm (157-399); Red Blood Count 4.02 10^6/uL (3.85-5.65); Red Cell Distribution Width 14.4 % (12.1-15.1); White Blood Count 7.24 10^3/uL (3.29-11.43)
--- NOTE | 2023-07-13 10:12 | CT_ITS ---
WS: [id number] CT LEFT HIP, NONCONTRAST HISTORY: pain swelling 2 wks post arthroplasty Technique: All CT scans at [facility] use at least one of these dose optimization techniques: automated exposure control; mA and/or kV adjustment per patient size (includes targeted exams where dose is matched to clinical indication); or iterative reconstruction. DLP: 480.52 mGy.cm COMPARISON: Radiograph 07/13/2023 Recent LEFT hip arthroplasty is been performed. No new fracture or malalignment. There is additional soft tissue edema surrounding the hip. Subcutaneous edema lateral to the hip. There is an additional fluid collection with a few foci of air posterior to the femoral neck. This co llection measures 6.0 x 4.1 cm and extends over a length of 5.5 cm. There are a few small foci of air within this collection. Additional moderate atherosclerotic disease within the femoral and deep profunda arteries. IMPRESSION: 1. Recent LEFT hip arthroplasty. 2. Postoperative fluid collection posterior to the LEFT femoral neck contains a few foci of air. Col lection measures 6.0 x 4.1 x 5.1 cm. Differential includes postoperative resolving hematoma/seroma an d infection.
[2023-07-13 10:36] LABS: Alanine Aminotransferase 13 U/L (0-41); Albumin Level 3.7 g/dL (3.5-5.2); Alkaline Phosphatase 157 U/L (40-130); Anion Gap 13.2 (5-19); Aspartate Amino Transferase 13 U/L (0-40); Blood Urea Nitrogen 11 mg/dL (8-23); Calcium 9.3 mg/dL (8.5-10.5); Carbon Dioxide 27 mmol/L (22-29); Chloride 102 mmol/L (98-107); Creatinine Clr Calc Pharmacy 85.7481; Globulin 3.4 g/dL (1.3-4.6); Glucose 122 mg/dL (65-115); Osmolality Calculated 287 mOsm/kg (285-295); Potassium 4.2 mmol/L (3.5-5.1); Sodium 138 mmol/L (136-145); Total Bilirubin 0.3 mg/dL (0.15-1.2); Total Protein 7.1 g/dL (6.6-8.7)
[2023-07-13] MEDS: ondansetron 2 mg/ML SDV 2 mL 4 MG IVP (11:17)
[2023-07-13] MEDS: morphine 4 mg/mL SDV 1 mL IVP (11:18)
[2023-07-13 11:50] LABS: Erythrocyte Sedimentation Rate 24 mm/hr (0-10)
[2023-07-13 12:00] LABS: C Reactive Protein 11.7 mg/L (0.0-4.9)
== END 2023-07-13 13:50 | disposition home or self-care (01) ==
PROVIDERS: Emergency Provider Family Medicine; PCP Family Medicine
DX: M96.842 Postprocedural seroma of a musculoskeletal structure following a musculoskeletal system procedure (principal); Z96.642 Presence of left artificial hip joint; Z79.02 Long term (current) use of antithrombotics/antiplatelets; I25.10 Atherosclerotic heart disease of native coronary artery without angina pectoris; I25.2 Old myocardial infarction
CPT/HCPCS: 36415; 73502; 73700; 80053; 85025; 85651; 86140; 96374; 96375; 99285; J2270; J2405

== ENCOUNTER → 2023-08-02 14:22 | Outpatient (BNVA) | payer MEDICARE, MEDICAID, SELFPAY | PROVIDERS: PCP Family Medicine; Visit Provider Specialist | DX: Z96.642 Presence of left artificial hip joint (principal) | CPT/HCPCS: 73502; 99024 ==

== ENCOUNTER → 2023-11-07 13:51 | Outpatient (BNVA) | payer MEDICARE, MEDICAID, SELFPAY | PROVIDERS: PCP Family Medicine; Visit Provider Specialist | DX: Z96.642 Presence of left artificial hip joint (principal); M87.052 Idiopathic aseptic necrosis of left femur | CPT/HCPCS: 73502; 99213 ==

== ENCOUNTER → 2023-12-15 14:20 | Outpatient (BNVA) | payer MEDICARE, MEDICAID, SELFPAY | PROVIDERS: PCP Family Medicine; Visit Provider Internal Medicine | DX: I25.10 Atherosclerotic heart disease of native coronary artery without angina pectoris (principal); Z86.718 Personal history of other venous thrombosis and embolism; F17.200 Nicotine dependence, unspecified, uncomplicated | CPT/HCPCS: 99214 ==

== ENCOUNTER → 2024-09-28 11:36 | Outpatient (BNVA) | payer MEDICAID, SELFPAY | PROVIDERS: PCP Family Medicine; Visit Provider Nurse Practitioner Family | DX: I25.10 Atherosclerotic heart disease of native coronary artery without angina pectoris (principal); Z86.718 Personal history of other venous thrombosis and embolism; Z79.01 Long term (current) use of anticoagulants; F17.290 Nicotine dependence, other tobacco product, uncomplicated; I25.2 Old myocardial infarction | CPT/HCPCS: 99213 ==